=== PATIENT | female | born 1935 | race Caucasian/White ===

== ENCOUNTER 2017-03-14 12:39 | Inpatient (IN) | payer MEDICARE, BC ==
[~2017-03-14] VITALS: Ht 162.6 cm; Wt 65.3 kg
[2017-03-14] MEDS ORDERED: Norco 5mg/325mg tab ORAL PRN (16:15)
[2017-03-14] MEDS ORDERED: Lomotil 2.5mg tab ORAL PRN (16:15)
[2017-03-14] MEDS: Potassium Chloride 10 MEQ in NS 1000ml 1,000 ML IV SCH (17:52)
[2017-03-14 18:14] LABS: BASOPHILS % (AUTO) 0.8 % (0.0-2.0); EOSINOPHILS % (AUTO) 0.1 % (0.0-3.0); LYMPHOCYTES % (AUTO) 20.4 % (20.0-45.0); MEAN CORPUSCULAR HEMOGLOBIN 30.4 PG (27.0-31.0); MEAN CORPUSCULAR HGB CONC 33.9 G/DL (32.0-36.0); MEAN CORPUSCULAR VOLUME 90 FL (80-99); MEAN PLATELET VOLUME 12.3 FL (6.5-10.1); MONOCYTES % (AUTO) 9.4 % (1.0-10.0); NEUTROPHILS % (AUTO) 69.3 % (45.0-75.0); PLATELET COUNT 134 K/UL (150-450); RED BLOOD COUNT 4.91 M/UL (4.20-5.40); RED CELL DISTRIBUTION WIDTH 14.5 % (11.6-14.8); WHITE BLOOD COUNT 17.3 K/UL (4.8-10.8)
[2017-03-14 18:15] LABS: ALANINE AMINOTRANSFERASE 23 U/L (3-33); ALBUMIN/GLOBULIN RATIO 1.1 (1.0-2.7); ANION GAP 18 (5-15); ASPARTATE AMINO TRANSFERASE 42 U/L (5-40); CALCIUM 9.7 mg/dL (8.6-10.2); CARBON DIOXIDE 16 mEQ/L (20-30); CHLORIDE 108 mEQ/L (98-107); CREATININE 2.2 mg/dL (0.5-0.9); HEMOLYSIS 16; MAGNESIUM 2.7 mg/dL (1.7-2.5); POTASSIUM 4.1 mEQ/L (3.4-4.9); SODIUM 142 mEQ/L (135-145); TOTAL PROTEIN 7.9 g/dL (6.6-8.7)
[2017-03-14 20:00] VITALS: BP 98/60
[2017-03-14] MEDS: metroNIDAZOLE 500mg 100 ML IVPB SCH (22:56)
[2017-03-15] MEDS: Potassium Chloride 10 MEQ in NS 1000ml 1,000 ML IV SCH ×3 (03:04→17:09)
[2017-03-15 04:00] VITALS: BP 111/70
[2017-03-15] MEDS: metroNIDAZOLE 500mg 100 ML IVPB SCH ×3 (06:23→22:00)
[2017-03-15 06:31] LABS: APPEARANCE,URINE CLEAR; KETONES,URINE NEGATIVE (NEGATIVE); LEUKOCYTE ESTERASE ,URINE NEGATIVE (NEGATIVE); NITRITE,URINE NEGATIVE (NEGATIVE); PH,URINE 5 (4.5-8.0); PROTEIN,URINE NEGATIVE (NEGATIVE); UROBILINOGEN,URINE NORMAL MG/DL (0.0-1.0)
[2017-03-15 07:19] LABS: BASOPHILS % (AUTO) 0.7 % (0.0-2.0); EOSINOPHILS % (AUTO) 0.9 % (0.0-3.0); LYMPHOCYTES % (AUTO) 25.2 % (20.0-45.0); MEAN CORPUSCULAR HGB CONC 32.1 G/DL (32.0-36.0); MEAN CORPUSCULAR VOLUME 91 FL (80-99); MEAN PLATELET VOLUME 11.7 FL (6.5-10.1); NEUTROPHILS % (AUTO) 64.2 % (45.0-75.0); PLATELET COUNT 134 K/UL (150-450); RED BLOOD COUNT 4.53 M/UL (4.20-5.40); RED CELL DISTRIBUTION WIDTH 14.8 % (11.6-14.8); WHITE BLOOD COUNT 10.3 K/UL (4.8-10.8)
[2017-03-15 07:25] LABS: ALANINE AMINOTRANSFERASE 29 U/L (3-33); ALBUMIN/GLOBULIN RATIO 1.3 (1.0-2.7); ANION GAP 10 (5-15); ASPARTATE AMINO TRANSFERASE 41 U/L (5-40); CALCIUM 9.4 mg/dL (8.6-10.2); CARBON DIOXIDE 25 mEQ/L (20-30); CHLORIDE 105 mEQ/L (98-107); HEMOLYSIS 8; POTASSIUM 4.6 mEQ/L (3.4-4.9); SODIUM 140 mEQ/L (135-145)
[2017-03-15 09:00] VITALS: BP 105/62
--- NOTE | 2017-03-15 11:08 | Diagnostic Imaging Report ---
Indication: COUGH Technique: Two views of the chest Comparison: 05/13/2014 Findings: Inspiration is suboptimal. Atelectasis is demonstrated the left lung base. Lungs and pleural spaces otherwise clear. The aorta is tortuous. There is mild thoracic scoliotic deformity. No significant change Impression: Hypoventilatory exam. No acute process
[2017-03-15 15:43] VITALS: BP 116/74
[2017-03-15 20:11] VITALS: BP 111/44
--- NOTE | 2017-03-15 21:40 | Consultation ---
DATE OF CONSULTATION: 03/14/2017 REQUESTING PHYSICIAN: Urbano Dong M.D. REASON FOR CONSULTATION: Hypotension and hypovolemic shock. HISTORY OF PRESENT ILLNESS: This is a 81-year-old white female. She lives at home with her significant other. Over the past week, she has been increasingly withdrawn, bedridden, weak in her legs and had been unable to mobilize enough to even get to the bathroom. She has had incontinence of urine and stool, which has been watery and foul smelling. She has not been eating much nor taking her medications regularly. She was brought to the office today for evaluation and based on her severe hypotension of 80 systolic, admitted to the hospital. PAST MEDICAL HISTORY: 1. Head and neck cancer, status post right jaw removal with surgical replacement using bone from the right leg. 2. Hypothyroidism. 3. Pernicious anemia with B12 deficiency. 4. Iron deficiency. 5. Chronic obstructive pulmonary disease. ALLERGIES: None. FAMILY HISTORY: Notable for coronary artery disease in her sister. SOCIAL HISTORY: Active smoker 50+ pack years. No alcohol or substance abuse. REVIEW OF SYSTEMS: She does have a distant history of C. difficile colitis and fungal cyst and Jaida esophagitis. There is no history of active wheezing. She has not been on steroids recently. There is no history of cardiovascular disease. There is no history of seizure or stroke. She has had progressive memory loss. Decline in function since her head and neck surgery several years ago, however, follow up scans of the brain last year revealed no signs of recurrent disease or strokes. She is on thyroid replacement. There is no history of diabetes. There is no history of melena or bright red blood per rectum. She has been incontinent of urine. PHYSICAL EXAMINATION: GENERAL: Awake and alert, but withdrawn. VITAL SIGNS: Blood pressure 98/60, pulse 88, respirations 16, afebrile, and room air oxygen 96%. HEENT: Normocephalic and atraumatic. Conjunctivae pink. Oropharynx clear. There is a deep ulcer below the chin, which is chronic and unchanged from her previous surgery. NECK: Supple. No thyromegaly. LUNGS: With coarse breath sounds. Few rhonchi. CARDIAC: Regular rhythm and rate. Normal S1 and S2 with no murmur. ABDOMEN: Soft and nontender. No guarding or rebound. EXTREMITIES: Good pulses. No edema. NEUROLOGIC: Speech is slightly pressured with word-finding difficulty, but coherent. No focal motor deficits noted. LABORATORY DATA: Urine is pending. White count 17.3 and hemoglobin 14.9. Sodium 142, potassium 4.1, bicarbonate 16, BUN 67, and creatinine 2.2. TSH is 11.1. Albumin is 4.2. IMPRESSION: 1. Hypovolemic shock. 2. Dehydration. 3. Acute renal failure due to acute tubular necrosis. 4. Metabolic acidosis. 5. Leukocytosis. 6. Probable sepsis. 7. Possible acute pulmonary infection. 8. Possible urinary tract infection. 9. Possible colitis with diarrhea. 10. Hypothyroidism likely due to noncompliance. PLAN: 1. Stool for C. difficile. 2. Urinalysis and culture. 3. Intravenous fluid. 4. Hydration. 5. Empiric antibiotics. 6. Increase thyroid replacement. 7. Check chest x-ray. 8. Further assessment of functional capacity will follow. Adan Rodríguez M.D. DR: EMILIANA JOB#: [id number] CC:
--- NOTE | 2017-03-15 21:40 | History and Physical Report ---
DATE OF ADMISSION: 03/14/2017 CHIEF COMPLAINT: Acute renal failure, dehydration, and failure to thrive. HISTORY OF PRESENT ILLNESS: This is a 81-year-old female. She has a history of diastolic congestive heart failure and hypothyroidism. She has a history of oral cancer, status post resection. She is admitted with complaints of generalized weakness and altered mentation for approximately a week duration. The patient currently has not been eating well, has been more confused. No reports of any fever or chills. No cough. She has had diarrhea and no bright red blood per rectum. It is unclear whether or not she has been taking her medications. There are no reports of any headaches. PAST MEDICAL HISTORY: As above. PAST SURGICAL HISTORY: Oral surgery. CURRENT MEDICATIONS: Reconciled and reviewed. ALLERGIES: None. SOCIAL HISTORY: The patient is a prior smoker. No alcohol. No drugs. FAMILY HISTORY: None. REVIEW OF SYSTEMS: General: No fever or chills. Positive malaise and weakness. HEENT: No headaches or visual changes. Cardiopulmonary: No chest pain or shortness of breath. Gastrointestinal: No nausea or vomiting. Genitourinary: No urgency or frequency. Musculoskeletal: No dependent swelling. Neurologic: No evidence of seizures. PHYSICAL EXAMINATION: VITAL SIGNS: Temperature 97, pulse 88, respirations 16, and blood pressure is 98/60. GENERAL: The patient is well-developed female, in no apparent distress. There is a skin ulceration and scab on the chin. NECK: Supple. There is no jugular venous distention. HEART: Regular rate and rhythm. LUNGS: Clear. ABDOMEN: Soft, nontender, and nondistended. EXTREMITIES: Without clubbing, cyanosis, or edema. NEUROLOGICAL: The patient is nonfocal. She is oriented x3. LABORATORY DATA: UA was clear. White count of 17,000, hemoglobin 14, and platelets of 134,000. Sodium 143, potassium 4.1, chloride 108, bicarb 16, BUN 67, and creatinine was 2. AST was 42. TSH was 11. ASSESSMENT: This is a pleasant female with complaints of altered mental status, failure to thrive, possible sepsis, and leukocytosis of unclear etiology. She has a history of diastolic congestive heart failure and hypothyroidism. PLAN: Intravenous hydration. Check renal ultrasound. Empiric antibiotic therapy for possible sepsis. Follow up cultures. Follow up chest x-ray. Cardiology consultation for management of the patient's hypotension. Urbano Dong M.D. DR: TOD JOB#: [id number] CC:
[2017-03-16 00:12] VITALS: BP 120/73
--- NOTE | 2017-03-16 01:02 | Wound Care Consultation ---
Wound Assessment Wound Assessment : Wound Present on Admission: Yes New Wound: No Status Change of Wound: No Wound Location Body Site: other - chin Wound Type: lesion-etiology unknown Ciarra Test: Does not Ciarra Wound Thickness: Full Thickness Percent of Wound Bed Yellow/Wh: 50 Percent of Wound Black/Brown: 50 Wound Drainage Description: Serosanguineous Wound Drainage Amount: Scant Wound Drainage Odor: None/Absent Tissue Surrounding Wound: Intact Wound General Appearance: Draining Wound Comment #1 Open wounds on chin etiology unknown. Pt with Hx of oral cancer. Recommendation -Open wounds on chin Cleanse with saline pat dry apply Adaptic cover with bordered gauze daily and PRN soiled/dislodged -Keep clean and dry -Optimize nutrition -Assess and f/u with MD for any changes SANDIE ARANA RN Mar 16, 2017 01:02
[2017-03-16] MEDS: Potassium Chloride 10 MEQ in NS 1000ml 1,000 ML IV SCH ×4 (01:12→17:18)
[2017-03-16 04:55] VITALS: BP 116/77
[2017-03-16] MEDS: metroNIDAZOLE 500mg 100 ML IVPB SCH ×2 (05:33→15:02)
[2017-03-16 07:47] VITALS: BP 118/69
[2017-03-16 10:30] LABS: BASOPHILS % (AUTO) 0.8 % (0.0-2.0); EOSINOPHILS % (AUTO) 1.6 % (0.0-3.0); LYMPHOCYTES % (AUTO) 20.5 % (20.0-45.0); MEAN CORPUSCULAR HEMOGLOBIN 28.4 PG (27.0-31.0); MEAN CORPUSCULAR VOLUME 89 FL (80-99); MEAN PLATELET VOLUME 10.8 FL (6.5-10.1); MONOCYTES % (AUTO) 8.4 % (1.0-10.0); NEUTROPHILS % (AUTO) 68.8 % (45.0-75.0); PLATELET COUNT 114 K/UL (150-450); RED BLOOD COUNT 4.58 M/UL (4.20-5.40); RED CELL DISTRIBUTION WIDTH 13.9 % (11.6-14.8); WHITE BLOOD COUNT 9.1 K/UL (4.8-10.8)
[2017-03-16 10:57] LABS: ALANINE AMINOTRANSFERASE 29 U/L (3-33); ALBUMIN/GLOBULIN RATIO 1.1 (1.0-2.7); ANION GAP 13 (5-15); ASPARTATE AMINO TRANSFERASE 31 U/L (5-40); CALCIUM 9.4 mg/dL (8.6-10.2); CARBON DIOXIDE 20 mEQ/L (20-30); CHLORIDE 103 mEQ/L (98-107); CREATININE 1.5 mg/dL (0.5-0.9); HEMOLYSIS 5; MAGNESIUM 2.1 mg/dL (1.7-2.5); POTASSIUM 4.2 mEQ/L (3.4-4.9); SODIUM 136 mEQ/L (135-145); TOTAL PROTEIN 6.9 g/dL (6.6-8.7)
[2017-03-16 12:00] VITALS: BP 116/68
--- NOTE | 2017-03-16 14:28 | General Progress Note ---
Assessment/Plan Problem List: (1) Sepsis ICD Codes: A41.9 - Sepsis, unspecified organism SNOMED: 64720156 (2) UTI (urinary tract infection) ICD Codes: N39.0 - Urinary tract infection, site not specified SNOMED: 91033794 (3) Colitis ICD Codes: K52.9 - Noninfective gastroenteritis and colitis, unspecified SNOMED: 30046395 (4) Acute renal failure ICD Codes: N17.9 - Acute kidney failure, unspecified SNOMED: 57468618 (5) Dehydration ICD Codes: E86.0 - Dehydration SNOMED: 18582743 (6) Syncope ICD Codes: R55 - Syncope and collapse SNOMED: 487588685 Status: stable Assessment/Plan cont fluuids abx monitor renal fxn renal harjinder Subjective ROS Limited/Unobtainable: No Constitutional: Reports: malaise, weakness HEENT: Reports: no symptoms Cardiovascular: Reports: no symptoms Respiratory: Reports: no symptoms Gastrointestinal/Abdominal: Reports: no symptoms Genitourinary: Reports: no symptoms Neurologic/Psychiatric: Reports: no symptoms Endocrine: Reports: no symptoms Hematologic/Lymphatic: Reports: no symptoms Allergies: Coded Allergies: NO KNOWN ALLERGIES (Verified Allergy, Unknown, 03/14/17) NO KNOWN DRUG ALLERGIES (Verified Allergy, Unknown, 03/14/17) All Systems: reviewed and negative except above Subjective less confused. renal fxn improving. no diarrhea. on iv abx. Objective Last 24 Hour Vital Signs Date Time Temp Pulse Resp B/P Pulse Ox O2 Delivery O2 Flow Rate FiO2 03/16/17 12:00 97.9 84 20 116/68 99 Room Air 03/16/17 07:47 98.0 82 19 118/69 97 Room Air 03/16/17 04:55 97.7 80 20 116/77 98 Room Air 03/16/17 00:12 96.8 90 20 120/73 97 Room Air 03/15/17 20:11 97.3 86 20 111/44 96 Room Air 03/15/17 15:43 97.3 84 20 116/74 97 Room Air Intake and Output 03/15/17 03/16/17 19:00 07:00 Intake Total 480 ml 850 ml Balance 480 ml 850 ml Intake Oral 480 ml 850 ml # Voids 7 Laboratory Tests 03/16/17 08:30: White Blood Count 9.1, Red Blood Count 4.58, Hemoglobin 13.0, Hematocrit 40.6, Mean Corpuscular Volume 89, Mean Corpuscular Hemoglobin 28.4, Mean Corpuscular Hemoglobin Concent 32.0, Red Cell Distribution Width 13.9, Platelet Count 114L, Mean Platelet Volume 10.8H, Neutrophils (%) (Auto) 68.8, Lymphocytes (%) (Auto) 20.5, Monocytes (%) (Auto) 8.4, Eosinophils (%) (Auto) 1.6, Basophils (%) (Auto ) 0.8, Sodium Level 136, Potassium Level 4.2, Chloride Level 103, Carbon Dioxide Level 20, Anion Gap 13, Blood Urea Nitrogen 47H, Creatinine 1.5H, Estimat Glomerular Filtration Rate , Glucose Level 101, Calcium Level 9.4, Magnesium Level 2.1, Total Bilirubin 0.4, Aspartate Amino Transf (AST/SGOT) 31, Alanine Aminotransferase (ALT/SGPT) 29, Alkaline Phosphatase 57, Total Protein 6.9, Albumin 3.7, Globulin 3.2, Albumin/Globulin Ratio 1.1 Height (Feet): 5 Height (Inches): 4.00 Weight (Pounds): 144 General Appearance: WD/WN, alert Neck: supple Cardiovascular: regular rhythm Respiratory/Chest: lungs clear, normal breath sounds, no respiratory distress Abdomen: normal bowel sounds, non tender, soft, no organomegaly, no mass Edema: no edema noted Arm (L), no edema noted Arm (R), no edema noted Leg (L), no edema noted Leg (R), no edema noted Pedal (L), no edema noted Pedal (R), no edema noted Generalized Neurologic: manager procurement II-XII grossly normal, no motor/sensory deficits, abnormal gait , alert, oriented x 3, responsive Skin: normal pigmentation IRVING ALVARENGA Mar 16, 2017 14:28
[2017-03-16 15:46] VITALS: BP 109/68
[2017-03-16 19:34] VITALS: BP 117/54
[2017-03-16] MEDS ORDERED: Levofloxacin 250mg/D5W 50ml IVPB SCH (21:00)
[2017-03-16] MEDS: metroNIDAZOLE 500mg tab ORAL SCH (22:57)
[2017-03-17] VITALS (7 sets, daily range): BP systolic 101–125; BP diastolic 61–82
[2017-03-17] MEDS: Lyrica 50mg cap ORAL SCH ×2 (00:05→20:59)
--- NOTE | 2017-03-17 06:00 | Progress Note ---
DATE: 03/15/2017 LATE ENTRY CARDIOLOGY PROGRESS NOTE: SUBJECTIVE: The patient is more alert, still confused at night. Appetite is fair. She feels weak standing up. OBJECTIVE: VITAL SIGNS: Blood pressure is 105/62, pulse 84, and respiratory rate 18. HEENT: Oropharynx is clear. No thrush. Mucous membranes are dry. Lesion under chin without any drainage NECK: Supple. LUNGS: Clear. CARDIAC: Regular. Normal S1 and S2. ABDOMEN: Soft. EXTREMITIES: No edema. LABORATORY DATA: White count is 10 and hemoglobin 13. Potassium is 4.6, BUN 67, and creatinine 2.0. Albumin is 4. IMPRESSION: 1. Leukocytosis, improved. 2. Sepsis due to gastroenteritis suspected. 3. Hypothyroidism. 4. Dehydration. 5. Acute renal failure. 6. Metabolic encephalopathy. 7. Toxic encephalopathy. 8. History of head and neck cancer. PLAN: Continue IV fluids. Antimicrobials. Thyroid replacement. Physical and occupational therapy. Adan Rodríguez M.D. DR: Keanu JOB#: [id number] CC:
[2017-03-17] MEDS: metroNIDAZOLE 500mg tab ORAL SCH ×3 (06:45→21:34)
--- NOTE | 2017-03-17 08:22 | Diagnostic Imaging Report ---
Indications: Abnormal renal function tests Technique: Transabdominal real-time grayscale and duplex Doppler imaging of the kidneys, retroperitoneum, and urinary bladder was performed Findings: Comparison: None Right kidney measures 9.9 cm in length. Normal contour, echotexture, cortical thickness. No stones, other focal lesions, hydronephrosis, or obvious perinephric abnormalities. Left kidney measures 9.3 cm in length. Normal contour, echotexture, cortical thickness. No stones, other focal lesions, hydronephrosis, or obvious perinephric abnormalities. The intrahepatic portion of inferior vena cava is patent and normal caliber. The urinary bladder is minimally distended without obvious abnormality. IMPRESSION: Negative bilateral renal/retroperitoneal ultrasound
[2017-03-17] MEDS: Lactobacillus-GG tablet ORAL SCH ×3 (09:14→18:03)
--- NOTE | 2017-03-17 14:41 | Diagnostic Imaging Report ---
Indication: BERTA Technique: spiral acquisitions obtained through the brain. Angled axial and coronal 5 x 5 mm slices were reconstructed. No IV contrast utilized. Radiation dose was minimized using automated exposure control Total dose length product 1904 mGycm. CTDIvol(s) 28 and 70 mGy. These values are inclusive of facial CT performed at same time Comparison: none FINDINGS: No acute hemorrhage or edema. No mass effect or midline shift. There is age-related enlargement of the ventricles and extra axial CSF spaces. There is periventricular deep white matter ischemic change. Normal avila-white differentiation. Visualized orbits are unremarkable. Visualized sinuses are unremarkable. Intact calvarium. IMPRESSION: Chronic and age-related changes. Negative for acute intracranial bleed or mass effect The CT scanner at [facility] is accredited by the [employer] and the scans are performed using protocols designed to limit radiation exposure to as low as reasonably achievable to attain images of sufficient resolution adequate for diagnostic evaluation
--- NOTE | 2017-03-17 15:54 | General Progress Note ---
Assessment/Plan Problem List: (1) Sepsis ICD Codes: A41.9 - Sepsis, unspecified organism SNOMED: 96042483 (2) UTI (urinary tract infection) ICD Codes: N39.0 - Urinary tract infection, site not specified SNOMED: 91289402 (3) Colitis ICD Codes: K52.9 - Noninfective gastroenteritis and colitis, unspecified SNOMED: 86574415 (4) Acute renal failure ICD Codes: N17.9 - Acute kidney failure, unspecified SNOMED: 47481268 (5) Dehydration ICD Codes: E86.0 - Dehydration SNOMED: 05104474 (6) Syncope ICD Codes: R55 - Syncope and collapse SNOMED: 320724547 Status: stable, progressing Assessment/Plan cont fluuids abx monitor renal fxn pt/ot dc planning tomorrow if stable Subjective ROS Limited/Unobtainable: No Constitutional: Reports: malaise, weakness HEENT: Reports: no symptoms Cardiovascular: Reports: no symptoms Respiratory: Reports: no symptoms Gastrointestinal/Abdominal: Reports: diarrhea Genitourinary: Reports: no symptoms Neurologic/Psychiatric: Reports: pre-existing deficit Endocrine: Reports: no symptoms Hematologic/Lymphatic: Reports: no symptoms Allergies: Coded Allergies: NO KNOWN ALLERGIES (Verified Allergy, Unknown, 03/14/17) NO KNOWN DRUG ALLERGIES (Verified Allergy, Unknown, 03/14/17) All Systems: reviewed and negative except above Subjective less confused. renal fxn improving. no diarrhea. on iv abx. feels like she is getting "better." no hydro on harjinder. head ct negative. Objective Last 24 Hour Vital Signs Date Time Temp Pulse Resp B/P Pulse Ox O2 Delivery O2 Flow Rate FiO2 03/17/17 13:43 96.9 68 18 116/74 98 Room Air 03/17/17 12:00 96.9 68 18 116/74 98 03/17/17 08:00 96.8 74 18 104/68 99 Room Air 03/17/17 04:00 97.2 69 20 119/62 97 Room Air 03/17/17 00:00 97.8 59 17 125/82 97 03/16/17 19:34 98.1 83 20 117/54 98 Room Air Intake and Output 03/16/17 03/17/17 19:00 07:00 Intake Total 650 ml 410 ml Output Total 600 ml Balance 50 ml 410 ml Intake Oral 650 ml 360 ml IV Total 50 ml Output Urine Total 600 ml # Voids 6 # Bowel Movements 1 Height (Feet): 5 Height (Inches): 4.00 Weight (Pounds): 144 Objective General Appearance: WD/WN, alert Neck: supple Cardiovascular: regular rhythm Respiratory/Chest: lungs clear, normal breath sounds, no respiratory distress Abdomen: normal bowel sounds, non tender, soft, no organomegaly, no mass Edema: no edema noted Arm (L), no edema noted Arm (R), no edema noted Leg (L), no edema noted Leg (R), no edema noted Pedal (L), no edema noted Pedal (R), no edema noted Generalized Neurologic: transfer professor II-XII grossly normal, no motor/sensory deficits, abnormal gait , alert, oriented x 3, responsive Skin: normal pigmentation IRVING ALVARENGA Mar 17, 2017 15:54
[2017-03-17] MEDS ORDERED: Potassium Chloride 10 MEQ in NS 1000ml 1,000 ML IV SCH (17:00)
[2017-03-18 01:00] VITALS: BP 114/63
--- NOTE | 2017-03-18 03:00 | Progress Note ---
DATE: 03/17/2017 CARDIOLOGY PROGRESS NOTE SUBJECTIVE: The patient is more alert and less confused. Appetite better. OBJECTIVE: VITAL SIGNS: Blood pressure 116/74, heart rate 68, and respiratory rate 18. No fevers. HEENT: Oropharynx clear. NECK: Supple. LUNGS: Clear. CARDIAC: Regular. Normal S1 and S2 with a fourth heart sound. ABDOMEN: Soft. EXTREMITIES: No edema. SKIN: With chin wound, dry and stable. DIAGNOSTIC STUDIES: Renal ultrasound is without any acute process. CT scan of the brain with no acute process. IMPRESSION: 1. Dehydration. 2. Hypovolemia. 3. Acute renal failure. 4. Sepsis. 5. Probable acute pulmonary infection. 6. Hypothyroidism. 7. History of head and neck cancer. PLAN: 1. Await CT scan of the facial bones. 2. Continue hydration with taper as oral intake improves and renal function normalizes. 3. Thyroid replacement. Adan Rodríguez M.D. DR: ION JOB#: [id number] CC:
[2017-03-18 04:00] VITALS: BP 129/77
[2017-03-18] MEDS: metroNIDAZOLE 500mg tab ORAL SCH ×3 (06:25→20:27)
[2017-03-18 08:00] VITALS: BP 116/69
--- NOTE | 2017-03-18 08:20 | General Progress Note ---
Assessment/Plan Problem List: (1) Sepsis ICD Codes: A41.9 - Sepsis, unspecified organism SNOMED: 84235399 (2) UTI (urinary tract infection) ICD Codes: N39.0 - Urinary tract infection, site not specified SNOMED: 08069953 (3) Colitis ICD Codes: K52.9 - Noninfective gastroenteritis and colitis, unspecified SNOMED: 63745338 (4) Acute renal failure ICD Codes: N17.9 - Acute kidney failure, unspecified SNOMED: 57535888 (5) Dehydration ICD Codes: E86.0 - Dehydration SNOMED: 52062789 (6) Syncope ICD Codes: R55 - Syncope and collapse SNOMED: 674418566 Status: stable, progressing Assessment/Plan cont fluuids abx monitor renal fxn pt/ot dc planning was facial CT results back/reviewed. Subjective ROS Limited/Unobtainable: No Constitutional: Reports: weakness HEENT: Reports: no symptoms Cardiovascular: Reports: no symptoms Respiratory: Reports: no symptoms Gastrointestinal/Abdominal: Reports: diarrhea Genitourinary: Reports: no symptoms Neurologic/Psychiatric: Reports: no symptoms Endocrine: Reports: no symptoms Hematologic/Lymphatic: Reports: no symptoms Allergies: Coded Allergies: NO KNOWN ALLERGIES (Verified Allergy, Unknown, 03/14/17) NO KNOWN DRUG ALLERGIES (Verified Allergy, Unknown, 03/14/17) All Systems: reviewed and negative except above Subjective no events. continues top improve. morning labs still pending. awaiting facial CT. less dizzy and weak. Objective Last 24 Hour Vital Signs Date Time Temp Pulse Resp B/P Pulse Ox O2 Delivery O2 Flow Rate FiO2 03/18/17 08:00 97.7 76 20 116/69 98 Room Air 03/18/17 04:00 97.7 73 18 129/77 98 Room Air 03/18/17 01:00 97.7 62 18 114/63 96 Room Air 03/17/17 20:04 98.1 84 18 115/73 96 Room Air 03/17/17 16:00 96.9 79 18 101/61 97 Room Air 03/17/17 13:43 96.9 68 18 116/74 98 Room Air 03/17/17 12:00 96.9 68 18 116/74 98 Intake and Output 03/17/17 03/18/17 19:00 07:00 Intake Total 1240 ml 1380 ml Output Total 900 ml 400 ml Balance 340 ml 980 ml Intake Oral 1240 ml 420 ml IV Total 960 ml Output Urine Total 900 ml 400 ml # Voids 5 # Bowel Movements 1 Height (Feet): 5 Height (Inches): 4.00 Weight (Pounds): 144 Objective General Appearance: WD/WN, alert Neck: supple Cardiovascular: regular rhythm Respiratory/Chest: lungs clear, normal breath sounds, no respiratory distress Abdomen: normal bowel sounds, non tender, soft, no organomegaly, no mass Edema: no edema noted Arm (L), no edema noted Arm (R), no edema noted Leg (L), no edema noted Leg (R), no edema noted Pedal (L), no edema noted Pedal (R), no edema noted Generalized Neurologic: edm operator II-XII grossly normal, no motor/sensory deficits, abnormal gait , alert, oriented x 3, responsive Skin: normal pigmentation IRVING ALVARENGA Mar 18, 2017 08:20
[2017-03-18] MEDS: Lactobacillus-GG tablet ORAL SCH ×3 (08:59→17:07)
[2017-03-18] MEDS: Potassium Chloride 10 MEQ in NS 1000ml 1,000 ML IV SCH ×2 (09:00→20:27)
[2017-03-18 11:26] LABS: ANION GAP 11 (5-15); CALCIUM 9.8 mg/dL (8.6-10.2); CARBON DIOXIDE 23 mEQ/L (20-30); CHLORIDE 102 mEQ/L (98-107); CREATININE 1.4 mg/dL (0.5-0.9); HEMOLYSIS 4; POTASSIUM 4.7 mEQ/L (3.4-4.9); SODIUM 136 mEQ/L (135-145)
[2017-03-18 12:00] VITALS: BP 126/83
--- NOTE | 2017-03-18 12:00 | Progress Note ---
CARDIOLOGY PROGRESS NOTE OBJECTIVE: GENERAL: The patient is more alert and less confused. VITAL SIGNS: Blood pressure 116/69, pulse 76, and respiratory 20. LUNG: Few rhonchi. CARDIAC: Regular. ABDOMEN: Soft. EXTREMITIES: No edema. LABORATORY DATA: CAT scan of the facial bones is pending. IMPRESSION: 1. Rehydrated resolving renal failure. 2. Hypothyroidism. 3. Acute bronchitis. 4. Head and neck cancer. 5. Delirium improving. 6. Resolving sepsis. PLAN: 1. Follow up imaging of the facial bones. 2. Taper off IV fluids. 3. Follow up laboratory studies. 4. Protein supplement. 5. Thyroid replacement. 6. Empiric antibiotics. Adan Rodríguez M.D. DR: ROYAL JOB#: [id number] CC:
[2017-03-18 16:00] VITALS: BP 121/79
[2017-03-18 20:00] VITALS: BP 132/69
[2017-03-18] MEDS: Lyrica 50mg cap ORAL SCH (20:28)
[2017-03-19] VITALS: BP 129/77
[2017-03-19 04:00] VITALS: BP 109/64
[2017-03-19] MEDS: metroNIDAZOLE 500mg tab ORAL SCH ×3 (05:22→21:08)
[2017-03-19 08:00] VITALS: BP 110/68
[2017-03-19] MEDS: Lactobacillus-GG tablet ORAL SCH ×3 (08:23→17:24)
[2017-03-19] MEDS: Potassium Chloride 10 MEQ in NS 1000ml 1,000 ML IV SCH ×2 (09:30→21:08)
[2017-03-19 12:00] VITALS: BP 109/69
--- NOTE | 2017-03-19 18:48 | General Progress Note ---
Assessment/Plan Problem List: (1) Sepsis ICD Codes: A41.9 - Sepsis, unspecified organism SNOMED: 65875089 (2) UTI (urinary tract infection) ICD Codes: N39.0 - Urinary tract infection, site not specified SNOMED: 39228281 (3) Colitis ICD Codes: K52.9 - Noninfective gastroenteritis and colitis, unspecified SNOMED: 68942128 (4) Acute renal failure ICD Codes: N17.9 - Acute kidney failure, unspecified SNOMED: 16371276 (5) Dehydration ICD Codes: E86.0 - Dehydration SNOMED: 06488020 (6) Syncope ICD Codes: R55 - Syncope and collapse SNOMED: 316791101 Status: stable, progressing Assessment/Plan cont fluuids abx monitor renal fxn pt/ot start aricept 5 daily Subjective ROS Limited/Unobtainable: Yes HEENT: Reports: no symptoms Cardiovascular: Reports: no symptoms Respiratory: Reports: no symptoms Gastrointestinal/Abdominal: Reports: poor appetite Genitourinary: Reports: no symptoms Neurologic/Psychiatric: Reports: pre-existing deficit Endocrine: Reports: no symptoms Hematologic/Lymphatic: Reports: no symptoms Allergies: Coded Allergies: NO KNOWN ALLERGIES (Verified Allergy, Unknown, 03/14/17) NO KNOWN DRUG ALLERGIES (Verified Allergy, Unknown, 03/14/17) All Systems: reviewed and negative except above Subjective no events. continues top improve. ct head/facial bones shows atropy. pt thinks she is at home. Objective Last 24 Hour Vital Signs Date Time Temp Pulse Resp B/P Pulse Ox O2 Delivery O2 Flow Rate FiO2 03/19/17 12:00 96.6 64 18 109/69 97 Room Air 03/19/17 11:29 96.6 03/19/17 08:00 97.8 76 20 110/68 97 Room Air 03/19/17 04:00 97.0 74 18 109/64 93 Room Air 03/19/17 00:00 98.2 78 18 129/77 97 Room Air 03/18/17 20:00 97.7 82 18 132/69 96 Room Air Intake and Output 03/18/17 03/19/17 19:00 07:00 Intake Total 1165 ml 1000 ml Balance 1165 ml 1000 ml Intake Oral 320 ml 120 ml IV Total 845 ml 880 ml # Voids 5 5 Height (Feet): 5 Height (Inches): 4.00 Weight (Pounds): 144 Objective General Appearance: WD/WN, alert Neck: supple Cardiovascular: regular rhythm Respiratory/Chest: lungs clear, normal breath sounds, no respiratory distress Abdomen: normal bowel sounds, non tender, soft, no organomegaly, no mass Edema: no edema noted Arm (L), no edema noted Arm (R), no edema noted Leg (L), no edema noted Leg (R), no edema noted Pedal (L), no edema noted Pedal (R), no edema noted Generalized Neurologic: pipe buffer II-XII grossly normal, no motor/sensory deficits, abnormal gait , alert, oriented x 3, responsive Skin: normal pigmentation IRVING ALVARENGA Mar 19, 2017 18:48
[2017-03-19 20:00] VITALS: BP 110/48
[2017-03-19] MEDS: Donepezil 5mg Tab ORAL SCH (21:08)
[2017-03-19] MEDS: Lyrica 50mg cap ORAL SCH (21:12)
[2017-03-20] VITALS: BP 105/54
[2017-03-20 04:00] VITALS: BP 111/60
--- NOTE | 2017-03-20 04:45 | Progress Note ---
DATE: 03/19/2017 CARDIOLOGY PROGRESS NOTE SUBJECTIVE: The patient is confused to place thinking she is at home. She is afebrile. Oral intake improved. OBJECTIVE: VITAL SIGNS: Blood pressure 109/60, pulse 80, and respiratory rate 20. LUNGS: Clear. CARDIAC: Regular. ABDOMEN: Soft. EXTREMITIES: No edema. Atrophy is noted only in the scan of the jaw. LABORATORY DATA: BUN 35, creatinine 1.4, and potassium 4.7, yesterday. IMPRESSION: 1. Acute renal failure improving. 2. Delirium. 3. Head and neck cancer in remission following surgery. 4. Hypothyroidism. PLAN: 1. Continue hydration. 2. Agree with Aricept. 3. Encourage oral intake and discontinue IVs once that is adequate. 4. Thyroid replacement daily on an empty stomach. 5. Mobilize and discharge planning in progress. Adan Rodríguez M.D. DR: EMILIANA JOB#: [id number] CC:
[2017-03-20] MEDS: metroNIDAZOLE 500mg tab ORAL SCH ×3 (06:39→21:38)
[2017-03-20] MEDS: Lactobacillus-GG tablet ORAL SCH ×3 (08:08→17:12)
[2017-03-20 08:09] VITALS: BP 123/68
--- NOTE | 2017-03-20 08:38 | Diagnostic Imaging Report ---
Indications: LUMP jaw pain, history of jaw surgery Technique: Spiral images obtained through the facial bones. No IV contrast utilized. Multiplanar reconstructions were generated.Total dose length product 1904 mGycm. CTDIvol(s) 28 and 70mGy. Values include head CT performed at same time Dose reduction achieved using automated exposure control Comparison: 09/12/2013 Findings: Again demonstrated is absent, presumably postsurgical, of a significant portion of the right mandibular body and ramus. Lateral side plate extends from the left side of the mentum, along the right mentum, body, angle, and up the right mandibular ramus. Although the sideplate is likely from the outer cortex of the mandible, the screw holes appear intact, without any worrisome lucency. Appearance and configuration are unchanged. There is a soft tissue defect of the facial soft tissues adjacent to the posterior mandibular body currently, this defect extends to the surgical hardware, which may very well be exposed. Previously, there was intervening soft tissue between the mandibular hardware and skin surface. However, there is not a significant amount of inflammatory change in the surrounding fat. This portion of the mandible is edentulous, as well. Considerable fat is seen surrounding the mandibular body. Uncertain as to whether this represents surgically induced fat or a secondary to atrophy of the adjacent musculature. There is absence of the right submandibular gland and atrophy of the right parotid gland. The remainder of the mandible is unremarkable. Surgical clips are seen surrounding the right side of the mandible, both deep and superficial to it. No definite mass lesion is demonstrated. No definite adenopathy. Streak artifact from dental amalgam could obscure pathology, however. The visualized orbits are unremarkable. The included intracranial structures are unremarkable except for cerebral volume loss. The mastoids are clear. There is sigmoid nasal septal deviation. No acute facial fracture is evident. 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 However, soft tissue defect adjacent to the mandibular body is considerably deeper than previously, now possibly sclerosis the surface of the hardware. This may be the result of intervening surgery, as there is not significant inflammation of the surrounding fat to suggest that this represents an ulceration. Correlation with clinical findings is recommended. No acute bony trauma. No other findings to suggest etiology of stated clinical history of jaw pain. The CT scanner at [facility] is accredited by the [employer] and the scans are performed using protocols designed to limit radiation exposure to as low as reasonably achievable to attain images of sufficient resolution adequate for diagnostic evaluation.
[2017-03-20 12:09] VITALS: BP 148/93
[2017-03-20] MEDS: Potassium Chloride 10 MEQ in NS 1000ml 1,000 ML IV SCH ×2 (13:57→22:50)
--- NOTE | 2017-03-20 14:16 | General Progress Note ---
Assessment/Plan Problem List: (1) Sepsis ICD Codes: A41.9 - Sepsis, unspecified organism SNOMED: 37363004 (2) UTI (urinary tract infection) ICD Codes: N39.0 - Urinary tract infection, site not specified SNOMED: 37741865 (3) Colitis ICD Codes: K52.9 - Noninfective gastroenteritis and colitis, unspecified SNOMED: 52805088 (4) Acute renal failure ICD Codes: N17.9 - Acute kidney failure, unspecified SNOMED: 09793358 (5) Dehydration ICD Codes: E86.0 - Dehydration SNOMED: 49674426 (6) Syncope ICD Codes: R55 - Syncope and collapse SNOMED: 507093890 Status: stable, progressing Assessment/Plan cont fluids abx monitor renal fxn pt/ot dc 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 Subjective ROS Limited/Unobtainable: No Constitutional: Reports: malaise, weakness HEENT: Reports: no symptoms Cardiovascular: Reports: no symptoms Respiratory: Reports: no symptoms Gastrointestinal/Abdominal: Reports: no symptoms Genitourinary: Reports: no symptoms Neurologic/Psychiatric: Reports: pre-existing deficit Endocrine: Reports: no symptoms Hematologic/Lymphatic: Reports: no symptoms Allergies: Coded Allergies: NO KNOWN ALLERGIES (Verified Allergy, Unknown, 03/14/17) NO KNOWN DRUG ALLERGIES (Verified Allergy, Unknown, 03/14/17) All Systems: reviewed and negative except above Subjective no events. oriented only to person. has sitter because she wanders. recognizes me. eating better. still thinks shes at "home." Objective Last 24 Hour Vital Signs Date Time Temp Pulse Resp B/P Pulse Ox O2 Delivery O2 Flow Rate FiO2 03/20/17 12:09 98.6 78 22 148/93 97 Room Air 03/20/17 08:09 97.0 81 21 123/68 96 Room Air 03/20/17 04:00 98.1 79 20 111/60 98 Room Air 03/20/17 00:00 98.1 81 20 105/54 97 Room Air 03/19/17 20:00 98.2 73 20 110/48 95 Room Air Intake and Output 03/19/17 03/20/17 19:00 07:00 Intake Total 1760 ml 960 ml Output Total 1100 ml Balance 1760 ml -140 ml Intake Oral 800 ml IV Total 960 ml 960 ml Output Urine Total 1100 ml # Voids 10 Height (Feet): 5 Height (Inches): 4.00 Weight (Pounds): 144 Objective General Appearance: WD/WN, alert Neck: supple Cardiovascular: regular rhythm Respiratory/Chest: lungs clear, normal breath sounds, no respiratory distress Abdomen: normal bowel sounds, non tender, soft, no organomegaly, no mass Edema: no edema noted Arm (L), no edema noted Arm (R), no edema noted Leg (L), no edema noted Leg (R), no edema noted Pedal (L), no edema noted Pedal (R), no edema noted Generalized Neurologic: senior linux systems administrator II-XII grossly normal, no motor/sensory deficits, abnormal gait , alert, oriented x 3, responsive Skin: normal pigmentation IRVING ALVARENGA Mar 20, 2017 14:16
[2017-03-20 16:02] VITALS: BP 132/83
[2017-03-20 19:29] VITALS: BP 120/73
[2017-03-20] MEDS: Donepezil 5mg Tab ORAL SCH (20:33)
[2017-03-20] MEDS: Lyrica 50mg cap ORAL SCH (20:33)
[2017-03-21] VITALS: BP 129/71
[2017-03-21 04:00] VITALS: BP 126/70
[2017-03-21] MEDS: metroNIDAZOLE 500mg tab ORAL SCH (06:10)
[2017-03-21 07:54] LABS: ALANINE AMINOTRANSFERASE 15 U/L (3-33); ALBUMIN/GLOBULIN RATIO 1.2 (1.0-2.7); ANION GAP 11 (5-15); ASPARTATE AMINO TRANSFERASE 16 U/L (5-40); CALCIUM 9.2 mg/dL (8.6-10.2); CARBON DIOXIDE 23 mEQ/L (20-30); CHLORIDE 107 mEQ/L (98-107); CREATININE 1.4 mg/dL (0.5-0.9); HEMOLYSIS 5; POTASSIUM 4.2 mEQ/L (3.4-4.9); SODIUM 141 mEQ/L (135-145); TOTAL PROTEIN 6.2 g/dL (6.6-8.7)
[2017-03-21 08:15] VITALS: BP 123/65
[2017-03-21] MEDS: Lactobacillus-GG tablet ORAL SCH (08:36)
[2017-03-21] MEDS ORDERED: LYRICA50 MG ORAL (09:10)
[2017-03-21] MEDS ORDERED: LEVOTHYROXINE150 MCG ORAL (09:10)
[2017-03-21] MEDS: Potassium Chloride 10 MEQ in NS 1000ml 1,000 ML IV SCH (11:24)
--- NOTE | 2017-03-22 02:00 | Progress Note ---
DATE: 03/20/2017 CARDIOLOGY PROGRESS NOTE: SUBJECTIVE: The patient remains confused, but directable. No nausea or vomiting. Tolerating diet. Imaging studies of the brain and facial bones revealed no acute pathology. OBJECTIVE: VITAL SIGNS: Afebrile, blood pressure is 123/60, pulse 81, and respiratory rate 21. LUNGS: Clear. CARDIAC: Regular. ABDOMEN: Soft. EXTREMITIES: No edema. IMPRESSION: 1. Acute renal failure, improved. 2. Dehydration and hypovolemia, recovering. 3. Hypothyroidism due to noncompliance. 4. Head and neck cancer in remission. 5. 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 PLAN: 1. Continue hydration. 2. Mobilize thyroid replacement. 3. Encourage oral intake. 4. Anticipate discontinued intravenous fluids over the next 24 hours if renal function continued to improve with no signs of pulmonary venous congestion. Adan Rodríguez M.D. DR: Keanu JOB#: [id number] CC:
--- NOTE | 2017-03-22 02:30 | Progress Note ---
DATE: 03/21/2017 CARDIOLOGY PROGRESS NOTE SUBJECTIVE: The patient's intake is good. Laboratories today revealed BUN 21 and creatinine 1.4. Albumin 3.4. The patient without abdominal pain, nausea, or vomiting. Discharge plan is initiated. OBJECTIVE: VITAL SIGNS: Blood pressure 126/70, pulse 78, respirations 18, no fevers. NECK: Supple. LUNGS: Clear. CARDIAC: Regular. ABDOMEN: Soft. EXTREMITIES: No edema. LABORATORY DATA: BUN 21, creatinine 1.4. IMPRESSION: 1. Improved and resolving renal failure due to acute tubular necrosis. 2. Dehydration and hypovolemia. 3. Hypothyroidism, needs additional replacement therapy on an empty stomach. 4. History of head and neck cancer, in remission with anoxic encephalopathy. 5. Mild protein-calorie malnutrition. PLAN: Plan of care reviewed and updated. Discharge medications discussed with family members. We will follow as an outpatient when needed. Adan Rodríguez M.D. DR: PATTI JOB#: [id number] CC:
--- NOTE | 2017-03-23 17:46 | Discharge Summary ---
Discharge Summary Hospital Course Date of Admission Mar 14, 2017 at 13:16 Date of Discharge Mar 21, 2017 at 12:07 Admitting Diagnosis HPI Debbie Byrd is a 81 year old female who was admitted on Mar 14, 2017 at 13:16 for Dehydration,Syncope Hospital Course [id number] Discharge Discharge Disposition Patient was discharged to Home with Home Health(06) Discharge Diagnoses: Keturah Rizvi NP Mar 23, 2017 17:46
--- NOTE | 2017-03-23 22:15 | Discharge Summary 2 SIG ---
DATE OF ADMISSION: 03/14/2017 DATE OF DISCHARGE: 03/21/2017 SOCIAL MEDIA DIRECTOR: Adan Rodríguez M.D. BRIEF HOSPITAL COURSE: The patient is a 81-year-old female with history of diastolic congestive heart failure and hypothyroidism. She was seen at Cardiology office and was noted to be hypotensive at 80 systolic and was advised to present to ED for further evaluation. She has history of oral cancer status post resection. She was admitted for complaints of generalized weakness with altered mentation for approximately one week duration and has not been eating well and has been more confused. There was diarrhea, but no bright red blood per rectum. She was admitted to medical floor for altered mental status, failure to thrive, possible sepsis, and leukocytosis of unclear etiology. She had a history of diastolic congestive heart failure and hypothyroidism and was given IV hydration and was started on empiric antibiotics. WBC was 17,000 and TSH was 11. She was followed by Dr. Rodríguez. She had renal failure secondary to hypovolemic shock, and dehydration. Creatinine was 2.2. Renal ultrasound done was negative for bilateral renal or retroperitoneal abnormality. Head CT showed chronic age-related changes, negative for acute intracranial bleed or mass effect. Chest x-ray showed no acute process. She underwent physical and occupational therapy. She had CT of the facial bones that showed postsurgical changes in the right mandible and right perimandibular soft tissue. There was no acute bony trauma. No other findings to suggest jaw pain. She was given thyroid supplements and was eventually started on Aricept. Renal function improved. She was eventually discharged home with and advised to follow up as outpatient. FINAL DIAGNOSES: 1. Acute renal failure due to acute tubular necrosis, improved and resolving. 2. Dehydration. 3. Hypovolemia. 4. Hypothyroidism. 5. Head and neck cancer in remission. 6. Mild protein-calorie malnutrition. 7. Dementia. 8. Sepsis. 9. Urinary tract infection. 10. Colitis. 11. Open wounds on the chin present on admission. Urbano Dong M.D. I have been assigned to dictate discharge summary on this account and I was not involved in the patient's management. Keturah Rizvi N.P. DR: Leyda JOB#: [id number] CC: DAVID
== END 2017-03-21 12:07 | disposition home health service (06) | DRG 871 ==
LOC: 4E 13:16
DX: A41.9 Sepsis, unspecified organism (principal); R57.1 Hypovolemic shock; N17.0 Acute kidney failure with tubular necrosis; G93.41 Metabolic encephalopathy; G92 Toxic encephalopathy; J18.9 Pneumonia, unspecified organism; I50.32 Chronic diastolic (congestive) heart failure; F03.90 Unspecified dementia, unspecified severity, without behavioral disturbance, psychotic disturbance, mood disturbance, and anxiety; N39.0 Urinary tract infection, site not specified; E44.1 Mild protein-calorie malnutrition; E86.0 Dehydration; K52.9 Noninfective gastroenteritis and colitis, unspecified; E03.9 Hypothyroidism, unspecified; Z87.891 Personal history of nicotine dependence; J44.9 Chronic obstructive pulmonary disease, unspecified; Z85.89 Personal history of malignant neoplasm of other organs and systems; R55 Syncope and collapse; J20.9 Acute bronchitis, unspecified; R41.0 Disorientation, unspecified; S01.80XA Unspecified open wound of other part of head, initial encounter; X58.XXXA Exposure to other specified factors, initial encounter
CPT/HCPCS: 36415; 70450; 70486; 71020; 76775; 80048; 80053; 81003; 83735; 84443; 85025

== ENCOUNTER 2017-05-07 13:37 | Inpatient (IN) | payer MEDICARE, BC ==
[~2017-05-07] VITALS: Ht 162.6 cm; Wt 59.0 kg
[~2017-05-07 13:37] MED LIST: LEVOTHYROXINE150 MCG ORAL; LYRICA50 MG ORAL
[2017-05-07] MEDS ORDERED: UNOBMED (13:42)
--- NOTE | 2017-05-07 13:58 | Emergency Room Report ---
History of Present Illness General Chief Complaint: General Complaint Source: Patient, EMS, PMD Present Illness HPI 81-year-old female history of diastolic CHF, hypothyroidism, dementia brought by EMS for altered mental status. Patient is currently alert and oriented to only person and place, however very confused and not able to give full history. PCP Dr Rodríguez called and stated that patient lives at home with her . Both her and her are both debilitated. Pt found by altered and in her feces. No other history able to be obtained. Dr. Rodríguez called 911 and brought patient to the hospital. Patient is currently denying any symptoms. Denying any known fever chills abdominal pain chest pain shortness of breath cough nausea or vomiting. Patient does not know why she is here Allergies: Coded Allergies: NO KNOWN ALLERGIES (Verified Allergy, Unknown, 03/14/17) NO KNOWN DRUG ALLERGIES (Verified Allergy, Unknown, 03/14/17) UNABLE TO ASSESS (Unverified , 05/07/17) Patient History Limited by: medical condition Past Medical History: see triage record Past Surgical History: none Pertinent Family History: none Reviewed Nursing Documentation: PMH: Agreed, PSxH: Agreed Nursing Documentation-PMH History Of Psychiatric Problem: Yes - Dementia Review of Systems All Other Systems: limited - pt with dementia not able to give full hx Physical Exam Vital Signs Date Time Temp Pulse Resp B/P (MAP) Pulse Ox O2 Delivery O2 Flow Rate FiO2 05/07/17 13:33 99.5 93 18 125/88 98 Room Air Sp02 EP Interpretation: reviewed, normal General Appearance: alert, other - Elderly female, appears dehydrated, appears nervous, confused Head: normocephalic, atraumatic Eyes: bilateral eye normal inspection, bilateral eye PERRL, bilateral eye EOMI ENT: normal ENT inspection, normal pharynx, normal voice, dry mucus membranes Neck: normal inspection, full range of motion, supple Respiratory: normal inspection, lungs clear, normal breath sounds, no respiratory distress, no retraction, no wheezing, chest symmetrical Cardiovascular #1: normal inspection, no edema, normal capillary refill, tachycardia Cardiovascular #2: 2+ radial (R), 2+ radial (L) Gastrointestinal: normal inspection, non tender, soft, non-distended, no guarding Musculoskeletal: normal inspection, back normal, normal range of motion, non- tender Neurologic: alert, responsive, motor strength/tone normal, sensory intact, normal gait, other - aox2, confused Psychiatric: anxious, other - confused Skin: normal color, no rash, warm/dry, normal turgor Procedures Critical Care Time Critical Care Time 40 minutes of CC time 81 yo F with altered mental status VS: tachycardia, febrile Sepsis criteria met Airway patent. Not hypoxic. PLAN: IV access, labs, lactate, Blood/Urine Cx, Abx Given IVF, [place] tylenol, abx Tele vs LISA CC time also includes review of labs, review of EMR, speaking to PMD, d/w hospitalist CC could include dosing of pressors, additional Abx CC time does not include procedures Medical Decision Making Diagnostic Impression: Primary Impression: Acute renal failure Qualified Codes: N17.9 - Acute kidney failure, unspecified Additional Impressions: Dehydration Sepsis Hypernatremia Altered mental status UTI (urinary tract infection) ER Course 81 yo F with altered mental status, dehydration DDX: Rule out infectious source, UTI, pneumonia, gastroenteritis. At this time patient's abdomen is soft nontender to deep palpation, not concerned of acute intra-abdominal surgical pathology. Dehydration, hypovolemia, renal failure, electrolyte disturbance, ACS Plan: Obtain labs, ua, blood cx, EKG, CXR ER course: Patient has been monitored during ED stay, HD stable tylenol given sepsis criteria met ceftriaxone given for UTI fluids given 30cc/kg Disposition: Patient is to be admitted to med surg. D/W hospitalist Dr. Rodríguez Please note that this Emergency Department Report was dictated using [employer] helper technology software, occasionally this can lead to erroneous entry secondary to interpretation by the dictation equipment. Laboratory Tests Test 05/07/17 14:10 05/07/17 15:20 White Blood Count 11.9 K/UL (4.8-10.8) H Red Blood Count 5.92 M/UL (4.20-5.40) H Hemoglobin 16.9 G/DL (12.0-16.0) H Hematocrit 52.7 % (37.0-47.0) H Mean Corpuscular Volume 89 FL (80-99) Mean Corpuscular Hemoglobin 28.6 PG (27.0-31.0) Mean Corpuscular Hemoglobin Concent 32.1 G/DL (32.0-36.0) Red Cell Distribution Width 15.3 % (11.6-14.8) H Platelet Count 194 K/UL (150-450) Mean Platelet Volume 10.5 FL (6.5-10.1) H Neutrophils (%) (Auto) 75.3 % (45.0-75.0) H Lymphocytes (%) (Auto) 16.8 % (20.0-45.0) L Monocytes (%) (Auto) 7.2 % (1.0-10.0) Eosinophils (%) (Auto) 0.0 % (0.0-3.0) Basophils (%) (Auto) 0.7 % (0.0-2.0) Sodium Level 150 mEQ/L (135-145) H Potassium Level 4.5 mEQ/L (3.4-4.9) Chloride Level 109 mEQ/L (98-107) H Carbon Dioxide Level 24 mEQ/L (20-30) Anion Gap 17 (5-15) H Blood Urea Nitrogen 45 mg/dL (7-23) H Creatinine 2.3 mg/dL (0.5-0.9) H Estimate Glomerular Filtration Rate mL/min (>60) Glucose Level 131 mg/dL (74-106) H Lactic Acid Level 2.70 mmol/L (0.66-2.22) H Calcium Level 11.2 mg/dL (8.6-10.2) H Total Bilirubin 0.7 mg/dL (0.0-1.2) Aspartate Amino Transferase (AST) 16 U/L (5-40) Alanine Aminotransferase (ALT) 11 U/L (3-33) Alkaline Phosphatase 61 U/L (35-104) Total Creatine Kinase 20 U/L (26-140) L Creatine Kinase MB < 1.5 ng/mL (< 3.8) Creatine Kinase MB Relative Index 7.5 Troponin I < 0.30 ng/mL (<=0.30) Total Protein 8.5 g/dL (6.6-8.7) Albumin 4.8 g/dL (3.5-5.2) Globulin 3.7 g/dL Albumin/Globulin Ratio 1.2 (1.0-2.7) Thyroid Stimulating Hormone (TSH) 7.190 uIU/mL (0.300-4.500) Urine Color Stephany Urine Appearance Slightly cloudy Urine pH 6 (4.5-8.0) Urine Specific Lindsay 1.015 (1.005-1.035) Urine Protein 2+ (NEGATIVE) H Urine Glucose (UA) Negative (NEGATIVE) Urine Ketones Negative (NEGATIVE) Urine Occult Blood 1+ (NEGATIVE) H Urine Nitrite Negative (NEGATIVE) Urine Bilirubin Negative (NEGATIVE) Urine Ictotest Negative Urine Urobilinogen 1 MG/DL (0.0-1.0) H Urine Leukocyte Esterase 1+ (NEGATIVE) H Urine RBC 2-4 /HPF (0 - 2) H Urine WBC 5-10 /HPF (0 - 2) H Urine Squamous Epithelial Cells Moderate /LPF (NONE/OCC) H Urine Bacteria Moderate /HPF (NONE) H Urine Mucus Moderate /LPF (NONE/OCC) H EKG Diagnostic Results Rate: tachycardiac Rhythm: NSR ST Segments: no acute changes ASA given to the pt in ED: No Rhythm Strip Diag. Results EP Interpretation: yes Rate: 100 Rhythm: NSR, no PVC's, no ectopy Chest X-Ray Diagnostic Results Chest X-Ray Diagnostic Results : Chest X-Ray Ordered: Yes # of Views/Limited/Complete: 1 View Indication: Other EP Interpretation: Yes Interpretation: no consolidation, no effusion, no pneumothorax, no acute cardiopulmonary disease Impression: No acute disease Interpreting ER Provider: Electronically signed by Jayson Trevino MD Last Vital Signs Date Time Temp Pulse Resp B/P (MAP) Pulse Ox O2 Delivery O2 Flow Rate FiO2 05/07/17 13:33 99.5 93 18 125/88 98 Room Air Disposition: ADMITTED INPATIENT Condition: Serious Jayson Trevino M.D. May 07, 2017 13:58
[2017-05-07 14:43] LABS: BASOPHILS % (AUTO) 0.7 % (0.0-2.0); LYMPHOCYTES % (AUTO) 16.8 % (20.0-45.0); MEAN CORPUSCULAR HEMOGLOBIN 28.6 PG (27.0-31.0); MEAN CORPUSCULAR HGB CONC 32.1 G/DL (32.0-36.0); MEAN CORPUSCULAR VOLUME 89 FL (80-99); MEAN PLATELET VOLUME 10.5 FL (6.5-10.1); MONOCYTES % (AUTO) 7.2 % (1.0-10.0); NEUTROPHILS % (AUTO) 75.3 % (45.0-75.0); PLATELET COUNT 194 K/UL (150-450); RED BLOOD COUNT 5.92 M/UL (4.20-5.40); RED CELL DISTRIBUTION WIDTH 15.3 % (11.6-14.8); WHITE BLOOD COUNT 11.9 K/UL (4.8-10.8)
[2017-05-07 14:59] LABS: ALANINE AMINOTRANSFERASE 11 U/L (3-33); ALBUMIN/GLOBULIN RATIO 1.2 (1.0-2.7); ANION GAP 17 (5-15); ASPARTATE AMINO TRANSFERASE 16 U/L (5-40); CALCIUM 11.2 mg/dL (8.6-10.2); CARBON DIOXIDE 24 mEQ/L (20-30); CHLORIDE 109 mEQ/L (98-107); CREATININE 2.3 mg/dL (0.5-0.9); HEMOLYSIS 2; POTASSIUM 4.5 mEQ/L (3.4-4.9); SODIUM 150 mEQ/L (135-145); TOTAL PROTEIN 8.5 g/dL (6.6-8.7); TROPONIN I < 0.30 ng/mL (<=0.30)
[2017-05-07 15:02] LABS: REFLEX LACTIC ACID YES OR NO YES
[2017-05-07 15:09] LABS: CKMB < 1.5 ng/mL (< 3.8)
[2017-05-07 15:14] VITALS: BP 128/67
[2017-05-07 15:31] LABS: APPEARANCE,URINE SLIGHTLY CLOUDY; KETONES,URINE NEGATIVE (NEGATIVE); LEUKOCYTE ESTERASE ,URINE 1+ (NEGATIVE); NITRITE,URINE NEGATIVE (NEGATIVE); PH,URINE 6 (4.5-8.0); PROTEIN,URINE 2+ (NEGATIVE); UROBILINOGEN,URINE 1 MG/DL (0.0-1.0)
[2017-05-07 15:40] LABS: BACTERIA,URINE MODERATE /HPF; ICTOTEST NEGATIVE; MUCUS,URINE MODERATE /LPF (NONE/OCC); SQUAMOUS EPITHELIAL CELL,UR MODERATE /LPF (NONE/OCC)
[2017-05-07] MEDS ORDERED: cefTRIAXone 1 GM in NS 55 ML IVPB ONE (16:00)
[2017-05-07 17:34] VITALS: BP 132/86
[2017-05-07 19:04] VITALS: BP 132/86
[2017-05-07 20:45] VITALS: BP 120/75
[2017-05-07 20:58] VITALS: BP 133/75
[2017-05-07] MEDS: Lyrica 50mg cap ORAL SCH (22:39)
[2017-05-07] MEDS: D5 1/2NS 1,000 ML IV SCH (22:40)
[2017-05-07] MEDS: Heparin 5000 units/ml inj SUBQ SCH (22:43)
[2017-05-08] VITALS: BP 137/79
[2017-05-08 04:00] VITALS: BP 104/55
[2017-05-08 08:00] VITALS: BP 107/58
[2017-05-08] MEDS: D5 1/2NS 1,000 ML IV SCH ×2 (09:08→18:02)
[2017-05-08] MEDS: Heparin 5000 units/ml inj SUBQ SCH ×2 (09:18→21:01)
--- NOTE | 2017-05-08 09:34 | Diagnostic Imaging Report ---
Indication: Chest pain Technique: One view of the chest Comparison: 03/15/2017 Findings: Lungs and pleural space are clear. Heart size is normal. Aorta is tortuous. Upper mediastinum is unremarkable. Better inspiration currently. There is no significant interim change otherwise Impression: No acute process This agrees with the preliminary interpretation provided by the emergency room physician
[2017-05-08 12:06] VITALS: BP 101/64
[2017-05-08 15:50] VITALS: BP 100/85
[2017-05-08] MEDS ORDERED: D5 1/2NS 1000ml IV ONE (16:13)
[2017-05-08] MEDS: cefTRIAXone 1 GM in D5W 55 ML IVPB SCH (16:57)
--- NOTE | 2017-05-08 19:48 | History & Physical ---
History and Physical History & Physicial CC: AMS HPI: 81 yo female history htn, hypothyroid, dementia, head and neck ca admitted with ams. dxd with arf, dehydration, sepsis, uti. on iv abx and ivf admitted for rx. PMH: as above PSH: head and neck ca Meds: recon and reviewed All: NKDA FH: cad, dementia, htn Shx: history of tob. no etoh or drugs ROS: not obtainable due to confusion PE: VSS nad small scab right chin supple. no lad [id number] clear soft, nt/nd, +bs no c/c/e Labs - cr 2 UA- +wbc A/ toxic met encephalopathy arf hypernatremia uti sepsis htn hypothyroid P/ ivf iv abx monitor rrenal fxn follow up cultures pt/ot IRVING ALVARENGA May 08, 2017 19:48
[2017-05-08 20:00] VITALS: BP 119/66
[2017-05-08] MEDS: Lyrica 50mg cap ORAL SCH (21:00)
[2017-05-09] VITALS (7 sets, daily range): BP systolic 93–135; BP diastolic 57–83
--- NOTE | 2017-05-09 05:15 | Progress Note ---
DATE: 05/08/2017 CARDIOLOGY PROGRESS NOTE SUBJECTIVE: The patient remains withdrawn and lethargic. She has no nausea or vomiting. Her oral intake is minimal. OBJECTIVE: VITAL SIGNS: Blood pressure 100/85, pulse 74, respiratory rate 18, afebrile, and room air oxygen sat is 97%. HEENT: A small abrasion over the chin. NECK: Supple. LUNGS: Clear. CARDIAC: Regular rhythm and rate. Normal S1 and S2 with no murmur. ABDOMEN: Soft. No guarding or rebound. EXTREMITIES: No edema. LABORATORY DATA: Labs from admission were re-reviewed. Urine culture negative to date. IMPRESSION: 1. Dehydration. 2. Hypernatremia. 3. Hypovolemia. 4. Toxic and metabolic encephalopathies. 5. Dementia with confusion. 6. History of head and neck cancer. 7. Immobility. 8. Functional decline. 9. Hypothyroidism. PLAN: 1. Hypotonic IV fluid hydration. 2. Empiric antibiotics. 3. Swallow evaluation to follow. 4. Thyroid replacement. 5. Physical and occupational therapy assessments to follow as well. Adan Rodríguez M.D. DR: ION JOB#: [id number] CC:
[2017-05-09] MEDS: D5 1/2NS 1,000 ML IV SCH ×2 (06:10→11:52)
[2017-05-09 07:01] LABS: EOSINOPHILS % (AUTO) 2.8 % (0.0-3.0); LYMPHOCYTES % (AUTO) 26.5 % (20.0-45.0); MEAN CORPUSCULAR HEMOGLOBIN 29.7 PG (27.0-31.0); MEAN CORPUSCULAR HGB CONC 33.6 G/DL (32.0-36.0); MEAN CORPUSCULAR VOLUME 88 FL (80-99); MEAN PLATELET VOLUME 11.1 FL (6.5-10.1); MONOCYTES % (AUTO) 7.9 % (1.0-10.0); NEUTROPHILS % (AUTO) 61.8 % (45.0-75.0); PLATELET COUNT 111 K/UL (150-450); RED BLOOD COUNT 4.14 M/UL (4.20-5.40); RED CELL DISTRIBUTION WIDTH 14.6 % (11.6-14.8); WHITE BLOOD COUNT 6.9 K/UL (4.8-10.8)
[2017-05-09 07:08] LABS: ALANINE AMINOTRANSFERASE 9 U/L (3-33); ALBUMIN/GLOBULIN RATIO 1.1 (1.0-2.7); ANION GAP 11 (5-15); ASPARTATE AMINO TRANSFERASE 16 U/L (5-40); CALCIUM 8.9 mg/dL (8.6-10.2); CARBON DIOXIDE 24 mEQ/L (20-30); CHLORIDE 104 mEQ/L (98-107); CREATININE 1.3 mg/dL (0.5-0.9); HEMOLYSIS 3; MAGNESIUM 1.9 mg/dL (1.7-2.5); POTASSIUM 4.3 mEQ/L (3.4-4.9); SODIUM 139 mEQ/L (135-145)
[2017-05-09] MEDS: Heparin 5000 units/ml inj SUBQ SCH ×2 (09:00→20:47)
--- NOTE | 2017-05-09 11:24 | General Progress Note ---
Assessment/Plan Problem List: (1) Acute renal failure ICD Codes: N17.9 - Acute kidney failure, unspecified SNOMED: 27241162 Qualifiers: Qualified Codes: N17.9 - Acute kidney failure, unspecified (2) Hypernatremia ICD Codes: E87.0 - Hyperosmolality and hypernatremia SNOMED: 66955278 (3) Sepsis ICD Codes: A41.9 - Sepsis, unspecified organism SNOMED: 94673435 (4) UTI (urinary tract infection) ICD Codes: N39.0 - Urinary tract infection, site not specified SNOMED: 08468764 (5) Dehydration ICD Codes: E86.0 - Dehydration SNOMED: 77202488 (6) Altered mental status ICD Codes: R41.82 - Altered mental status, unspecified SNOMED: 706655107 Status: stable, progressing Assessment/Plan ivf iv abx follow up cultures pt/ot eval dementia rx bp rx Subjective ROS Limited/Unobtainable: No Constitutional: Reports: malaise, weakness HEENT: Reports: no symptoms Cardiovascular: Reports: no symptoms Respiratory: Reports: no symptoms Gastrointestinal/Abdominal: Reports: poor fluid intake Genitourinary: Reports: no symptoms Neurologic/Psychiatric: Reports: pre-existing deficit Endocrine: Reports: no symptoms Hematologic/Lymphatic: Reports: no symptoms Allergies: Coded Allergies: NO KNOWN ALLERGIES (Verified Allergy, Unknown, 03/14/17) NO KNOWN DRUG ALLERGIES (Verified Allergy, Unknown, 03/14/17) UNABLE TO ASSESS (Unverified , 05/07/17) All Systems: reviewed and negative except above Subjective resting. no new complaints. follows commands. still confused. Objective Last 24 Hour Vital Signs Date Time Temp Pulse Resp B/P (MAP) Pulse Ox O2 Delivery O2 Flow Rate FiO2 05/09/17 08:00 97.6 70 20 135/83 100 Room Air 05/09/17 04:00 98.2 70 18 93/57 96 Room Air 05/09/17 00:00 97.4 74 18 108/64 96 Room Air 05/08/17 20:00 97.2 77 18 119/66 97 Room Air 05/08/17 15:50 97.6 74 18 100/85 97 Room Air 05/08/17 12:06 97.7 74 17 101/64 97 Room Air Intake and Output 05/09/17 05/10/17 19:00 07:00 Intake Total 240 ml Output Total 500 ml Balance -260 ml Intake Oral 240 ml Output Urine Total 500 ml Laboratory Tests 05/09/17 05:20: White Blood Count 6.9, Red Blood Count 4.14L, Hemoglobin 12.3, Hematocrit 36.5L , Mean Corpuscular Volume 88, Mean Corpuscular Hemoglobin 29.7, Mean Corpuscular Hemoglobin Concent 33.6, Red Cell Distribution Width 14.6, Platelet Count 111L, Mean Platelet Volume 11.1H, Neutrophils (%) (Auto) 61.8, Lymphocytes (%) (Auto) 26.5, Monocytes (%) (Auto) 7.9, Eosinophils (%) (Auto) 2.8, Basophils (%) (Auto) 1.0, Sodium Level 139, Potassium Level 4.3, Chloride Level 104, Carbon Dioxide Level 24, Anion Gap 11, Blood Urea Nitrogen 23, Creatinine 1.3H, Estimat Glomerular Filtration Rate , Glucose Level 91, Calcium Level 8.9, Magnesium Level 1.9, Total Bilirubin 0.3, Aspartate Amino Transf (AST /SGOT) 16, Alanine Aminotransferase (ALT/SGPT) 9, Alkaline Phosphatase 51, Total Protein 6.0L, Albumin 3.2L, Globulin 2.8, Albumin/Globulin Ratio 1.1 Height (Feet): 5 Height (Inches): 4.00 Weight (Pounds): 130 General Appearance: WD/WN, alert Neck: supple Cardiovascular: normal rate, regular rhythm Respiratory/Chest: chest wall non-tender, lungs clear, normal breath sounds, no respiratory distress Abdomen: normal bowel sounds, non tender, soft, no organomegaly Edema: no edema noted Arm (L), no edema noted Arm (R), no edema noted Leg (L), no edema noted Leg (R), no edema noted Pedal (L), no edema noted Pedal (R), no edema noted Generalized Neurologic: alert, responsive, disoriented Skin: normal pigmentation IRVING ALVARENGA May 09, 2017 11:24
[2017-05-09] MEDS: cefTRIAXone 1 GM in D5W 55 ML IVPB SCH (16:34)
[2017-05-09] MEDS: Lyrica 50mg cap ORAL SCH (20:45)
[2017-05-10 04:00] VITALS: BP 109/65
[2017-05-10] MEDS: D5 1/2NS 1,000 ML IV SCH (06:40)
--- NOTE | 2017-05-10 07:15 | Progress Note ---
DATE: 05/09/2017 CARDIOLOGY PROGRESS NOTE SUBJECTIVE: The patient is confused. She is unable to cooperate due to her confusion. She does follow commands and listens to me specifically as she recognizes me. OBJECTIVE: VITAL SIGNS: Blood pressure 93/57 earlier, now 135/83; heart rate 70; and respiratory rate 20. She is afebrile. LUNGS: Clear. CARDIAC: Regular. ABDOMEN: Soft. EXTREMITIES: With dependent edema. LABORATORY DATA: White count 6.9 and hemoglobin 12.3. BUN 23, creatinine 1.3, potassium 4.3, and albumin 3.2. IMPRESSION: 1. Dehydration. 2. Hypernatremia and hypovolemia, resolving. 3. Lactic acidosis, recovered. 4. Hypothyroidism, on replacement therapy. 5. Mild protein-calorie malnutrition. 6. Leukocytosis, resolved. 7. Hemoconcentration, resolved. 8. Mild thrombocytopenia noted, but with no signs of bleeding. PLAN: 1. Continue hydration. 2. Taper off as oral intake improves. 3. Mobilize as able. 4. Empiric antibiotics. 5. Thyroid replacement. Adan Rodríguez M.D. DR: EMILIANA JOB#: [id number] CC:
[2017-05-10 08:35] VITALS: BP 106/66
[2017-05-10] MEDS: Heparin 5000 units/ml inj SUBQ SCH ×2 (09:00→20:17)
[2017-05-10 12:42] VITALS: BP 112/59
[2017-05-10 15:51] VITALS: BP 114/63
[2017-05-10] MEDS: cefTRIAXone 1 GM in D5W 55 ML IVPB SCH (16:00)
--- NOTE | 2017-05-10 16:49 | Cardiology Report ---
APPROVED REPORT EKG Measurement Heart [id number] Sinus tachycardia Otherwise normal ECG
--- NOTE | 2017-05-10 19:53 | General Progress Note ---
Assessment/Plan Problem List: (1) Acute renal failure ICD Codes: N17.9 - Acute kidney failure, unspecified SNOMED: 13809274 Qualifiers: Qualified Codes: N17.9 - Acute kidney failure, unspecified (2) Hypernatremia ICD Codes: E87.0 - Hyperosmolality and hypernatremia SNOMED: 54328294 (3) Sepsis ICD Codes: A41.9 - Sepsis, unspecified organism SNOMED: 70443327 (4) UTI (urinary tract infection) ICD Codes: N39.0 - Urinary tract infection, site not specified SNOMED: 83803995 (5) Dehydration ICD Codes: E86.0 - Dehydration SNOMED: 58907757 (6) Altered mental status ICD Codes: R41.82 - Altered mental status, unspecified SNOMED: 422847921 Status: stable, progressing Assessment/Plan cotn ivf monitor volume status and labs iv abx follow up cultures pt/ot eval dementia rx bp rx consider snf or aru Subjective ROS Limited/Unobtainable: No Constitutional: Reports: malaise, weakness HEENT: Reports: no symptoms Cardiovascular: Reports: no symptoms Respiratory: Reports: no symptoms Gastrointestinal/Abdominal: Reports: no symptoms Genitourinary: Reports: no symptoms Neurologic/Psychiatric: Reports: pre-existing deficit Endocrine: Reports: no symptoms Hematologic/Lymphatic: Reports: no symptoms Allergies: Coded Allergies: NO KNOWN ALLERGIES (Verified Allergy, Unknown, 03/14/17) NO KNOWN DRUG ALLERGIES (Verified Allergy, Unknown, 03/14/17) UNABLE TO ASSESS (Unverified , 05/07/17) All Systems: reviewed and negative except above Subjective no events. awake and alert, follows commands. denies cp/sob. no dysuria. on abx and ivf. renal fxn improving, Objective Last 24 Hour Vital Signs Date Time Temp Pulse Resp B/P (MAP) Pulse Ox O2 Delivery O2 Flow Rate FiO2 05/10/17 15:51 97.9 79 20 114/63 96 Room Air 05/10/17 12:42 97.7 72 18 112/59 97 Room Air 05/10/17 08:35 97.7 77 18 106/66 96 Room Air 05/10/17 04:00 97.8 73 18 109/65 95 Room Air 05/09/17 23:56 97.9 77 18 111/59 96 Room Air 05/09/17 20:00 97.8 81 18 123/72 98 Room Air Intake and Output 05/10/17 05/11/17 19:00 07:00 # Bowel Movements 1 Height (Feet): 5 Height (Inches): 4.00 Weight (Pounds): 130 Objective General Appearance: WD/WN, alert Neck: supple Cardiovascular: normal rate, regular rhythm Respiratory/Chest: chest wall non-tender, lungs clear, normal breath sounds, no respiratory distress Abdomen: normal bowel sounds, non tender, soft, no organomegaly Edema: no edema noted Arm (L), no edema noted Arm (R), no edema noted Leg (L), no edema noted Leg (R), no edema noted Pedal (L), no edema noted Pedal (R), no edema noted Generalized Neurologic: alert, responsive, disoriented Skin: normal pigmentation IRVING ALVARENGA May 10, 2017 19:53
[2017-05-10 20:00] VITALS: BP 104/64
[2017-05-10] MEDS: Lyrica 50mg cap ORAL SCH (20:17)
[2017-05-11] VITALS: BP 115/63
[2017-05-11] MEDS: D5 1/2NS 1,000 ML IV SCH ×2 (03:39→23:30)
[2017-05-11 04:00] VITALS: BP 121/72
--- NOTE | 2017-05-11 04:45 | Progress Note ---
DATE: 05/10/2017 CARDIOLOGY PROGRESS NOTE SUBJECTIVE: The patient remains confused at times, but participated with PT and OT evaluations. Intake is fair. She remains on IV fluids. Renal parameters and volume status are improving. Cultures remained negative. OBJECTIVE: VITAL SIGNS: Blood pressure 114/63, pulse 79, and respirations 20. NECK: Supple. LUNGS: Clear. CARDIAC: Regular. Normal S1 and S2. ABDOMEN: Soft. EXTREMITIES: No edema. IMPRESSION: 1. Hypovolemia. 2. Dehydration. 3. Hypernatremia. 4. Hypothyroidism. 5. Metabolic encephalopathy. 6. Dementia. 7. Functional decline. 8. History of head and neck cancer. 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 PLAN: 1. Discontinue antimicrobials after 72 hours. 2. Continue cautious hydration. 3. Mobilize. 4. Refer to ARU. Adan Rodríguez M.D. DR: Jose Martin JOB#: [id number] CC:
[2017-05-11 07:10] LABS: MEAN CORPUSCULAR HEMOGLOBIN 30.8 PG (27.0-31.0); MEAN CORPUSCULAR HGB CONC 34.3 G/DL (32.0-36.0); MEAN CORPUSCULAR VOLUME 90 FL (80-99); MEAN PLATELET VOLUME 11.2 FL (6.5-10.1); PLATELET COUNT 89 K/UL (150-450); RED CELL DISTRIBUTION WIDTH 15.4 % (11.6-14.8); WHITE BLOOD COUNT 6.7 K/UL (4.8-10.8)
[2017-05-11 07:18] LABS: ANION GAP 9 (5-15); CALCIUM 9.3 mg/dL (8.6-10.2); CARBON DIOXIDE 23 mEQ/L (20-30); CHLORIDE 103 mEQ/L (98-107); CREATININE 1.2 mg/dL (0.5-0.9); HEMOLYSIS 3; POTASSIUM 3.9 mEQ/L (3.4-4.9); SODIUM 135 mEQ/L (135-145)
[2017-05-11 08:13] LABS: BASOPHILS % (MANUAL) 1 % (0-2); EOSINOPHILS % (MANUAL) 2 % (0-3); LYMPHOCYTES % (MANUAL) 26 % (20-45); NEUTROPHILS % (MANUAL) 63 % (45-75); TOTAL CELLS COUNTED 100
[2017-05-11] MEDS: Heparin 5000 units/ml inj SUBQ SCH ×2 (08:13→21:00)
[2017-05-11] MEDS: Lactobacillus-GG tablet ORAL SCH ×3 (08:13→16:56)
[2017-05-11 08:15] VITALS: BP 112/63
[2017-05-11 08:15] LABS: BAND NEUTROPHILS % (MANUAL) 0 % (0-8); PLATELET ESTIMATE DECREASED; PLATELET MORPHOLOGY NORMAL
[2017-05-11 08:16] LABS: ANISOCYTOSIS 1+
--- NOTE | 2017-05-11 08:33 | General Progress Note ---
Assessment/Plan Problem List: (1) Acute renal failure ICD Codes: N17.9 - Acute kidney failure, unspecified SNOMED: 23035617 Qualifiers: Qualified Codes: N17.9 - Acute kidney failure, unspecified (2) Hypernatremia ICD Codes: E87.0 - Hyperosmolality and hypernatremia SNOMED: 21860694 (3) Sepsis ICD Codes: A41.9 - Sepsis, unspecified organism SNOMED: 75316986 (4) UTI (urinary tract infection) ICD Codes: N39.0 - Urinary tract infection, site not specified SNOMED: 36726630 (5) Dehydration ICD Codes: E86.0 - Dehydration SNOMED: 18227776 (6) Altered mental status ICD Codes: R41.82 - Altered mental status, unspecified SNOMED: 954034304 (7) Toxic metabolic encephalopathy ICD Codes: G92 - Toxic encephalopathy SNOMED: 573380599 Status: stable, progressing Assessment/Plan cotn ivf monitor volume status and labs dc iv abx follow up cultures pt/ot dementia rx bp rx consider aru Subjective ROS Limited/Unobtainable: No Constitutional: Reports: malaise, weakness HEENT: Reports: no symptoms Cardiovascular: Reports: no symptoms Respiratory: Reports: no symptoms Gastrointestinal/Abdominal: Reports: no symptoms Genitourinary: Reports: no symptoms Neurologic/Psychiatric: Reports: pre-existing deficit Endocrine: Reports: no symptoms Hematologic/Lymphatic: Reports: no symptoms Allergies: Coded Allergies: NO KNOWN ALLERGIES (Verified Allergy, Unknown, 03/14/17) NO KNOWN DRUG ALLERGIES (Verified Allergy, Unknown, 03/14/17) UNABLE TO ASSESS (Unverified , 05/07/17) All Systems: reviewed and negative except above Subjective no events. awake and alert, follows commands. denies cp/sob. no dysuria. on abx and ivf. renal fxn improving, PT noted. Objective Last 24 Hour Vital Signs Date Time Temp Pulse Resp B/P (MAP) Pulse Ox O2 Delivery O2 Flow Rate FiO2 05/11/17 08:15 97.3 72 20 112/63 95 Room Air 05/11/17 04:00 97.2 81 21 121/72 98 Room Air 05/11/17 00:00 97.3 79 19 115/63 96 Room Air 05/10/17 20:00 98.8 77 18 104/64 97 Room Air 05/10/17 15:51 97.9 79 20 114/63 96 Room Air 05/10/17 12:42 97.7 72 18 112/59 97 Room Air 05/10/17 08:35 97.7 77 18 106/66 96 Room Air Intake and Output 05/11/17 05/12/17 19:00 07:00 Intake Total 360 ml Balance 360 ml Intake Oral 360 ml # Voids 1 # Bowel Movements 1 Laboratory Tests 05/11/17 04:55: White Blood Count 6.7, Red Blood Count 4.00L, Hemoglobin 12.3, Hematocrit 35.9L , Mean Corpuscular Volume 90, Mean Corpuscular Hemoglobin 30.8, Mean Corpuscular Hemoglobin Concent 34.3, Red Cell Distribution Width 15.4H, Platelet Count 89L, Mean Platelet Volume 11.2H, Neutrophils (%) (Auto) , Lymphocytes (%) (Auto) , Monocytes (%) (Auto) , Eosinophils (%) (Auto) , Basophils (%) (Auto) , Differential Total Cells Counted 100, Neutrophils % ( Manual) 63, Lymphocytes % (Manual) 26, Monocytes % (Manual) 8, Eosinophils % ( Manual) 2, Basophils % (Manual) 1, Band Neutrophils 0, Platelet Estimate DecreasedL, Platelet Morphology Normal, Anisocytosis 1+, Sodium Level 135, Potassium Level 3.9, Chloride Level 103, Carbon Dioxide Level 23, Anion Gap 9, Blood Urea Nitrogen 17, Creatinine 1.2H, Estimat Glomerular Filtration Rate , Glucose Level 94, Calcium Level 9.3 Height (Feet): 5 Height (Inches): 4.00 Weight (Pounds): 130 Objective General Appearance: WD/WN, alert Neck: supple Cardiovascular: normal rate, regular rhythm Respiratory/Chest: chest wall non-tender, lungs clear, normal breath sounds, no respiratory distress Abdomen: normal bowel sounds, non tender, soft, no organomegaly Edema: no edema noted Arm (L), no edema noted Arm (R), no edema noted Leg (L), no edema noted Leg (R), no edema noted Pedal (L), no edema noted Pedal (R), no edema noted Generalized Neurologic: alert, responsive, disoriented Skin: normal pigmentation IRVING ALVARENGA May 11, 2017 08:33
[2017-05-11] MEDS ORDERED: Tubing IV Secondary IV ONE (11:01)
[2017-05-11] MEDS ORDERED: D5 1/2NS 1000ml IV ONE (11:01)
[2017-05-11 11:47] VITALS: BP 116/55
[2017-05-11 15:44] VITALS: BP 105/77
[2017-05-11] MEDS: cefTRIAXone 1 GM in D5W 55 ML IVPB SCH (16:23)
[2017-05-11 19:19] VITALS: BP 109/64
[2017-05-11] MEDS: Lyrica 50mg cap ORAL SCH (21:08)
[2017-05-12] VITALS: BP 119/82
[2017-05-12 04:00] VITALS: BP 109/80
--- NOTE | 2017-05-12 05:00 | Progress Note ---
DATE: 05/11/2017 CARDIOLOGY PROGRESS NOTE SUBJECTIVE: The patient is more awake, alert, and following commands. She has been seen by physical and occupational therapy. She is being considered for ARU. OBJECTIVE: VITAL SIGNS: Blood pressure is 112/63, pulse 72, and respiratory rate 20. LUNGS: Clear. CARDIAC: Regular. ABDOMEN: Soft. EXTREMITIES: No edema. LABORATORY DATA: Laboratories noted. IMPRESSION AND PLAN: 1. Stabilizing hemodynamics and metabolic parameters. 2. Discontinue intravenous fluids in anticipation of discharge. 3. Encourage oral intake. 4. Discontinue intravenous antibiotics. Adan Rodríguez M.D. DR: Keanu JOB#: [id number] CC:
[2017-05-12 08:15] VITALS: BP 127/84
[2017-05-12] MEDS: Heparin 5000 units/ml inj SUBQ SCH (08:36)
[2017-05-12] MEDS: Lactobacillus-GG tablet ORAL SCH ×2 (08:52→12:53)
--- NOTE | 2017-05-12 09:06 | General Progress Note ---
Assessment/Plan Problem List: (1) Acute renal failure ICD Codes: N17.9 - Acute kidney failure, unspecified SNOMED: 55552707 Qualifiers: Qualified Codes: N17.9 - Acute kidney failure, unspecified (2) Hypernatremia ICD Codes: E87.0 - Hyperosmolality and hypernatremia SNOMED: 66505739 (3) Sepsis ICD Codes: A41.9 - Sepsis, unspecified organism SNOMED: 86792111 (4) UTI (urinary tract infection) ICD Codes: N39.0 - Urinary tract infection, site not specified SNOMED: 48401557 (5) Dehydration ICD Codes: E86.0 - Dehydration SNOMED: 70201788 (6) Altered mental status ICD Codes: R41.82 - Altered mental status, unspecified SNOMED: 163644489 (7) Toxic metabolic encephalopathy ICD Codes: G92 - Toxic encephalopathy SNOMED: 473468060 Status: stable, progressing Assessment/Plan monitor volume status and labs dc iv abx follow up cultures pt/ot dementia rx bp rx consider aru Subjective ROS Limited/Unobtainable: No Constitutional: Reports: malaise, weakness HEENT: Reports: no symptoms Cardiovascular: Reports: no symptoms Respiratory: Reports: no symptoms Gastrointestinal/Abdominal: Reports: no symptoms Genitourinary: Reports: no symptoms Neurologic/Psychiatric: Reports: pre-existing deficit Endocrine: Reports: no symptoms Hematologic/Lymphatic: Reports: no symptoms Allergies: Coded Allergies: NO KNOWN ALLERGIES (Verified Allergy, Unknown, 03/14/17) NO KNOWN DRUG ALLERGIES (Verified Allergy, Unknown, 03/14/17) UNABLE TO ASSESS (Unverified , 05/07/17) All Systems: reviewed and negative except above Subjective no events. awake and alert, follows commands. denies cp/sob. no dysuria. off abx. off ivf. Objective Last 24 Hour Vital Signs Date Time Temp Pulse Resp B/P (MAP) Pulse Ox O2 Delivery O2 Flow Rate FiO2 05/12/17 08:15 97.6 77 18 127/84 96 Room Air 05/12/17 04:00 97.5 67 20 109/80 97 Room Air 05/12/17 00:00 97.7 69 19 119/82 97 Room Air 05/11/17 19:19 97.2 80 19 109/64 93 Room Air 05/11/17 18:37 97.8 05/11/17 15:44 97.8 79 20 105/77 96 Room Air 05/11/17 11:47 98.0 74 20 116/55 95 Room Air Height (Feet): 5 Height (Inches): 4.00 Weight (Pounds): 130 Objective General Appearance: WD/WN, alert Neck: supple Cardiovascular: normal rate, regular rhythm Respiratory/Chest: chest wall non-tender, lungs clear, normal breath sounds, no respiratory distress Abdomen: normal bowel sounds, non tender, soft, no organomegaly Edema: no edema noted Arm (L), no edema noted Arm (R), no edema noted Leg (L), no edema noted Leg (R), no edema noted Pedal (L), no edema noted Pedal (R), no edema noted Generalized Neurologic: alert, responsive, disoriented Skin: normal pigmentation IRVNIG ALVARENGA May 12, 2017 09:06
[2017-05-12 11:51] VITALS: BP 117/74
[2017-05-12] MEDS ORDERED: D5 1/2NS 1000ml IV ONE (14:36)
[2017-05-12] MEDS ORDERED: Tubing IV Secondary IV ONE (14:36)
[2017-05-12] MEDS ORDERED: NS 275ml ONE (14:36)
[2017-05-12] MEDS ORDERED: cefTRIAXone 1 GM in D5W 55 ML IVPB SCH (16:00)
--- NOTE | 2017-05-13 00:15 | Progress Note ---
DATE: 05/12/2017 CARDIOLOGY PROGRESS NOTE SUBJECTIVE: The patient is periodically confused, more alert. No respiratory distress. Oral intake improving. Cultures remain negative. OBJECTIVE: VITAL SIGNS: Blood pressure 109/80, pulse 67, respiratory rate 20, no fever and room air oxygen 91%. LUNGS: Clear. CARDIAC: Regular. ABDOMEN: Soft. EXTREMITIES: No edema. IMPRESSION AND PLAN: Rehydrated. No signs of volume depletion or acute vascular insufficiency. Acute renal failure has resolved. The patient has residual toxic and metabolic encephalopathies as well as functional decline. She continues to require thyroid replacement. Agree with short course of acute rehabilitation unit prior to returning home. Discharge medication regimen reviewed. Adan Rodríguez M.D. DR: RADHA JOB#: [id number] CC:
--- NOTE | 2017-05-15 10:11 | Discharge Summary ---
Discharge Summary Hospital Course Date of Admission May 07, 2017 at 14:26 Date of Discharge May 12, 2017 at 14:37 Admitting Diagnosis ams/dehydration HPI Debbie Byrd is a 81 year old female who was admitted on May 07, 2017 at 14:26 for Ams/Dehydration Hospital Course dc summary #[id number] Discharge Medications Continued Medications: Levothyroxine Sodium* (Levothyroxine Sodium*) 150 Mcg Tablet 150 MCG ORAL ACBREAKFAST for 30 Days, TAB Take in the morning on an empty stomach, at least 30 minutes before food. Pregabalin (Lyrica) 50 Mg Capsule 50 MG ORAL BEDTIME for 30 Days, CAP Discontinued Medications: Unable to Obtain Medications (Unable To Obtain Meds) 1 Ea Ea Discharge Condition Upon Discharge: stable Discharge Disposition Patient was discharged to Acute Rehab Hosp/Unit(62) Discharge Diagnoses: Discharge Instructions Discharge Instructions Special Instructions I have been assigned to complete a D/C Summary on this account. I was not involved in the patient management Samantha Telles NP (Vanchtein) May 15, 2017 10:11
--- NOTE | 2017-05-16 01:30 | Discharge Summary 2 SIG ---
DATE OF ADMISSION: 05/07/2017 DATE OF DISCHARGE: 05/12/2017 REASON FOR ADMISSION: A 81-year-old female with history of hypertension, dementia, head and neck cancer, and hypothyroidism presented with altered mental status. In the emergency department, it was found that she had leukocytosis, WBC 11.9. Lactic acid was 2.7. Troponin was negative. Sodium 150, BUN 45, and creatinine 2.3. Urinalysis revealed evidence of UTI. The patient admitted for further management. ADMITTING DIAGNOSES: 1. Acute toxic metabolic encephalopathy. 2. Acute renal failure. 3. Hypernatremia. 4. Sepsis. 5. Urinary tract infection. HOSPITAL COURSE: The patient admitted. The patient started on the IV fluids. Renal parameters and electrolytes were closely monitored. Nephrotoxics were avoided. The patient started on empiric antibiotics and to follow up with the culture. [employer] closely followed the patient. Acute renal failure and hypernatremia secondary to dehydration due to hypovolemia. Volume was replaced with intravenous hydration. Renal parameters improved. Prior to discharge, creatinine down to 1.2 and BUN down to 17. Leukocytosis resolved. Hemoglobin and hematocrit stable. Urine culture negative. Blood culture negative. Status post treatment with antibiotics. Antibiotic discontinued. Chest x-ray revealed no acute cardiopulmonary pathology. Fall precautions were maintained. The patient was mobilized and worked with physical and occupational therapy. According to evaluation by PT and OT, the patient would benefit from short-term acute rehabilitation center. The discharge planning was working on transfer the patient to acute rehabilitation Center. The patient with history of hypothyroidism. TSH was elevated. Dose of levothyroxine was titrated. The patient has a history of hypertension, however, on admission was normotensive. No blood pressure medication this time, closely monitor. Sodium down to normal. Transfer was arranged to acute rehab at [facility]. The patient rehydrated, no signs of volume depletion or acute vascular insufficiency. Acute renal failure resolved and hypernatremia resolved. No leukocytosis. However, the patient still has residual toxic and metabolic encephalopathy along with functional decline. She continued to require thyroid replacement. She will benefit from short course of acute rehabilitation unit with physical and occupational therapy prior to returning home. DISCHARGE DIAGNOSES: 1. Acute toxic metabolic encephalopathy. 2. Acute renal failure, resolved. 3. Hypernatremia, resolved. 4. Dehydration secondary to hypovolemia, resolved. 5. Sepsis. 6. Possible urinary tract infection. 7. History of head and neck cancer. 8. 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 9. Hypothyroidism. 10. Hypertension with currently normotensive. DISCHARGE MEDICATIONS: See medication reconciliation list. DISCHARGE INSTRUCTIONS: The patient discharged to short-term acute rehabilitation center at [facility]. FOLLOWUP: Followup with medical doctor at the facility. Urbano Dong M.D. I have been assigned to dictate discharge summary on this account and I was not involved in the patient's management. Samantha [facility] NAtilioPAtilio DR: Deborah JOB#: [id number] CC:
== END 2017-05-12 14:37 | disposition short-term general hospital (02) | DRG 871 ==
LOC: EDBD 13:37 → EMR 14:23 → 4E 14:26 → EDBEDREQ 20:14 → 4E 05-10 06:34
DX: A41.9 Sepsis, unspecified organism (principal); G92 Toxic encephalopathy; N17.9 Acute kidney failure, unspecified; E87.0 Hyperosmolality and hypernatremia; E44.1 Mild protein-calorie malnutrition; D69.6 Thrombocytopenia, unspecified; N39.0 Urinary tract infection, site not specified; E86.0 Dehydration; E86.1 Hypovolemia; E03.9 Hypothyroidism, unspecified; F03.90 Unspecified dementia, unspecified severity, without behavioral disturbance, psychotic disturbance, mood disturbance, and anxiety; I10 Essential (primary) hypertension; Z85.89 Personal history of malignant neoplasm of other organs and systems; G89.29 Other chronic pain
CPT/HCPCS: 36415; 71010; 80048; 80053; 81003; 82550; 82553; 83605; 83735; 84443; 84484; 85007; 85025; 87040; 87086; 93005; 99285

== ENCOUNTER 2020-10-21 17:30 | Inpatient (IN) | payer MEDICARE, BC ==
[~2020-10-21] VITALS: Ht 160 cm; Wt 47.6 kg
[~2020-10-21 17:30] MED LIST changes: +UNOBMED
[2020-10-21] MEDS ORDERED: Morphine Sulfate 2mg/ml Inj(IV/IM USE ONLY) IVP SCH (18:00)
--- NOTE | 2020-10-21 19:37 | NUR ---
NURSE NOTES: Patient came in as direct admit at 1830 on gurney with two transporters. Patient is oriented to self, very confused and demented. Vitals: BP: unable to obtain because the patient refuses to stay still. O2: 97% Respiration: 19 Pulse rate: 62. Patient is a poor historian and is not able to give any medical history. RN unable to insert IV because the patient is combative. RN called her many times but unable to reach. The voice mail is not set up. Will endorse to the next shift nurse about contacting the family member for medical history and IV insertion and administration of medications due at 6pm.
[2020-10-21 19:40] LABS: HEMATOCRIT 47.9 % (37.0-47.0); HEMOGLOBIN 15.6 G/DL (12.0-16.0); MEAN CORPUSCULAR VOLUME 85 FL (80-99); PLATELET COUNT 121 K/UL (150-450); RED BLOOD COUNT 5.65 M/UL (4.20-5.40); WHITE BLOOD COUNT 14.8 K/UL (4.8-10.8)
[2020-10-21 19:50] LABS: INR 1.1 (0.9-1.1)
[2020-10-21 20:00] VITALS: BP 147/92
[2020-10-21 20:13] LABS: ALBUMIN 3.8 G/DL (3.4-5.0); ALBUMIN/GLOBULIN RATIO 0.7 (1.0-2.7); BILIRUBIN,TOTAL 1.3 MG/DL (0.2-1.0); CALCIUM 10.8 MG/DL (8.5-10.1); CREATININE 1.2 MG/DL (0.55-1.30); POTASSIUM 3.6 MMOL/L (3.5-5.1)
--- NOTE | 2020-10-21 20:15 | NUR ---
NURSE HAND-OFF: Important Events on Shift:direct admission, pt confused and refusing care, assessments, needs IV for medications Patient Status: confused, combative Diet: regular, soft mechanical chopped Pending Orders: consent for hemiarthroplasty Pending Results/Labs: Pending MD notification:ask outdoor emergency care technician to send images of Xray to Dr. Del Angel once ready Latest Vital Signs: Temperature , Pulse , B/P /, Respiratory Rate , O2 SAT , , O2 Flow Rate . Vital Sign Comment: O2: 97%, BP: unable to obtain, RR: 18, Temp: 97.6 Latest Garces Fall Score: 95 Fall Risk: High Risk Safety Measures: Call light Within Reach, Bed Alarm Zone 1, Side Rails Side Rails x3, Bed position Low and Locked. Fall Precautions: Yellow Socks Yellow Gown Door Sign Patient Fall Education Report given to Armin.
[2020-10-21 20:51] LABS: BILIRUBIN,DIRECT 0.3 MG/DL (0.0-0.3)
[2020-10-21] MEDS: celeBREX 200mg Cap **SURGERY PATIENTS ONLY ORAL SCH (21:55)
[2020-10-21] MEDS: Lyrica 50mg cap ORAL SCH (21:55)
--- NOTE | 2020-10-21 22:00 | NUR ---
NURSE NOTES: Pt is in bed, asleep. No acute distress noted.Pt is disoriented. Pt is uncooperative with care.Vitals stable. BP is elevated 151/92. Iv access established on the right forearm 22G, IV site wrapped with Kerlix to prevent patient from removing it. Pt is able to eat food. Pt complains of pain on left hip when repositioned, no wounds present. Pain medication given as ordered PRN. Room Air. Pt has a consent ordered for Left hip hemiarthroplasty; unable to obtain consent from patient as she is confused. 's phone number called multiple times ), no one answered the phone. Unable to obtain past medical history. Fall precautions in place, Bed alarm on, call light within reach. Bed locked low in position,side rails up . Pt is close to the nursing station. Pt instructed to call for assistance and not to get out of bed. Pt will be monitored.
--- NOTE | 2020-10-21 22:29 | History and Physical Report ---
DATE OF ADMISSION: 10/21/2020 CHIEF COMPLAINT: Left hip fracture. HISTORY OF PRESENT ILLNESS: The patient is an 84-year-old female with history of dementia, hypertension, hypothyroidism, head and neck cancer, who presented with complaints of a mechanical fall at home with her caregiver. An outpatient CT scan confirmed a left hip fracture and she is now admitted for orthopedic evaluation. The patient currently complains only of pain in the left hip. There is no reports of head trauma. No loss of consciousness. No chest pain. No shortness of breath. No heart palpitations. PAST MEDICAL HISTORY: As above. PAST SURGICAL HISTORY: Includes head and neck surgery. CURRENT MEDICATIONS: Reconciled and reviewed. ALLERGIES: None. FAMILY HISTORY: Significant for dementia. SOCIAL HISTORY: Negative for alcohol or drugs. The patient is a prior smoker. REVIEW OF SYSTEMS: GENERAL: No fevers or chills. HEENT: No headaches or visual changes. CARDIOPULMONARY: No chest pain or shortness of breath. GASTROINTESTINAL: No nausea or vomiting. GENITOURINARY: No urgency or frequency. MUSCULOSKELETAL: No joint pain or swelling. SKIN: No rash. NEUROLOGIC: No history of seizures. Positive for history of memory loss. No focal weakness. PHYSICAL EXAMINATION: VITAL SIGNS: Temperature 98, blood pressure 120/76, pulse 80, respirations 20. GENERAL: The patient is well developed, in no apparent distress. Awake, alert, and oriented x2. HEENT: Head is normocephalic and atraumatic. Sclerae anicteric. Oropharynx clear. NECK: Supple. HEART: Regular rate and rhythm without murmurs, rubs, or gallops. LUNGS: Clear to auscultation bilaterally. ABDOMEN: Soft, nontender, nondistended. EXTREMITIES: No clubbing or cyanosis. The patient has minimal range of motion in the left hip due to pain. LABORATORY AND DIAGNOSTIC DATA: Coags are normal. White count 15, hemoglobin 15, hematocrit 47, platelets of 121. Sodium 140, potassium 3.6, BUN 20, creatinine 1.2. Bilirubin of 1.3. TSH was 0.082. ASSESSMENT: This is an 84-year-old female with a history of dementia, hypothyroidism, history of head and neck cancer, admitted with complaints of mechanical fall and a left hip fracture. PLAN: Orthopedic consultation. Cardiology clearance for possible surgery. Follow up EKG and chest x-ray. Continue outpatient medication regimen. DVT and stress ulcer prophylaxes will be provided. Pain medications as needed. Urbano Dong M.D. DR: Elvia JOB#: [id number] CC:
--- NOTE | 2020-10-21 23:14 | Consultation ---
DATE OF CONSULTATION: 10/21/2020 CARDIOLOGY CONSULTATION CONSULTING PHYSICIAN: Adan Rodríguez MD REFERRING PHYSICIAN: Urbano Dong MD REASON FOR CONSULTATION: Preoperative cardiovascular risk assessment. HISTORY OF PRESENT ILLNESS: This 84-year-old female with Alzheimer's dementia lives at home with a caregiver. Yesterday morning while being preparing to go to a doctor's visit, she lost her balance and fell to the side on top of her caregiver who was next to her. Both fell to the ground. The caregiver is twisting her ankle and the patient landing on her left side. Subsequently she had pain with mobility. She underwent an outpatient CAT scan of the left hip that confirmed an acute fracture. Hospitalization was initiated. The patient has no history of cardiovascular disease. She had an echocardiogram just last week at my office that revealed a normal ejection fraction, mild degenerative valve disease, and no pulmonary hypertension. 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 ALLERGIES: None. FAMILY HISTORY: Notable for coronary artery disease. SOCIAL HISTORY: Prior smoker. Forty pack years. Social alcohol. No substance abuse. MEDICATIONS: Reviewed and reconciled. REVIEW OF SYSTEMS: There is no history of abnormal blood clotting. There is no history of diabetes. She is euthyroid on replacement therapy. She has not been on steroids. She rarely has used bronchodilators. There is a history of esophageal candidiasis and C. difficile colitis many years in the past. PHYSICAL EXAMINATION: VITAL SIGNS: Blood pressure 112/60, heart rate 78, respirations 18, afebrile. HEENT: Mild temporal wasting. Some scarring from the prior jaw surgery on the right and to the chin. No thrush. NECK: Supple. LUNGS: Clear. BREASTS: No breast masses. CARDIAC: Regular. Normal S1, S2 with no murmur. ABDOMEN: Soft, nontender. EXTREMITIES: With no edema. Good distal pulses. Internal rotation of the left hip noted. Mild bruise on the left hip. NEUROLOGIC: With moderate cognitive impairment, but patient responds to basic questioning. LABORATORY DATA: Pending. Outpatient electrocardiogram revealed normal sinus rhythm with no abnormalities. IMPRESSION: 1. Acute left hip fracture. 2. Mechanical fall. 3. Stable from cardiovascular standpoint for anesthesia and orthopedic surgery. PLAN: 1. Respiratory hygiene. 2. Review laboratory studies. 3. IV fluid hydration. 4. DVT prophylaxis. 5. Orthopedic surgery following evaluation by Dr. Del Angel to allow mobilization. Adan Rodríguez M.D. DR: HOWARD JOB#: [id number] CC:
[2020-10-22] VITALS (14 sets, daily range): BP systolic 81–157; BP diastolic 46–97
[2020-10-22] MEDS ORDERED: [UNRECOGNIZED DRUG - OTHER] IV ONE (00:42)
[2020-10-22] MEDS ORDERED: D5 IV ONE (00:42)
[2020-10-22] MEDS ORDERED: KCL IV ONE (00:42)
[2020-10-22] MEDS ORDERED: NS w/KCl 20mEq 1000ml 1,000 ML IV ONE (00:50)
--- NOTE | 2020-10-22 02:57 | NUR ---
NURSE NOTES: Pt is in bed, asleep. Pt tested negative for COVID-19. Vitals stable. Currently NPO. NS with 20mEq KCl running at 125ml/hr. Fall precaution in place
[2020-10-22] MEDS: Morphine Sulfate 2mg/ml Inj(IV/IM USE ONLY) IVP PRN (05:41)
[2020-10-22 06:16] LABS: APPEARANCE,URINE SLIGHTLY CLOUDY; BILIRUBIN, URINE NEGATIVE (NEGATIVE); GLUCOSE, URINE (UA) NEGATIVE (NEGATIVE); KETONES,URINE NEGATIVE (NEGATIVE); LEUKOCYTE ESTERASE ,URINE 1+ (NEGATIVE); NITRITE,URINE NEGATIVE (NEGATIVE); PH,URINE 5 (4.5-8.0); PROTEIN,URINE 2+ (NEGATIVE); UROBILINOGEN,URINE NORMAL MG/DL (0.0-1.0)
[2020-10-22 06:35] LABS: COLOR,URINE YELLOW
[2020-10-22 06:38] LABS: BASOPHILS % (AUTO) 0.6 % (0.0-2.0); EOSINOPHILS % (AUTO) 0.1 % (0.0-3.0); HEMATOCRIT 42.6 % (37.0-47.0); LYMPHOCYTES % (AUTO) 17.9 % (20.0-45.0); MEAN CORPUSCULAR VOLUME 85 FL (80-99); MONOCYTES % (AUTO) 9.4 % (1.0-10.0); PLATELET COUNT 103 K/UL (150-450); RED BLOOD COUNT 5.03 M/UL (4.20-5.40); RED CELL DISTRIBUTION WIDTH 14.2 % (11.6-14.8); WHITE BLOOD COUNT 10.7 K/UL (4.8-10.8)
--- NOTE | 2020-10-22 06:38 | NUR ---
NURSE NOTES: Alcantar inserted; 16fr. PT tolerated well. Urine sent for UA.
--- NOTE | 2020-10-22 07:15 | NUR ---
HAND OFF NOTE: Report given to FRANCISCA Valle. Informed that pt is fall risk.
--- NOTE | 2020-10-22 08:00 | NUR ---
NURSE NOTES: Pt lying in bed w/bed in lowest position and call light within reach. Pt A&Ox1, VSS, and in no apparent distress. IV site intact/asymptomatic; F/C patent/draining; and skin intact. Pt scheduled to have surgery today. Will continue to monitor.
--- NOTE | 2020-10-22 08:18 | NUR ---
EMERGENCY CONTACT RYAN OGLESBY (NIECE) [phone] Nijuanita will be the decision maker and will provide the consent
--- NOTE | 2020-10-22 08:21 | NUR ---
PHARMACY HELPER NOTE Pt's , Josef Penn [phone] does not answer a call. ANJUM spoke w/ Ryann from [facility] that pt was discharged back home in June 2020. Per Ryann, pt was not oriented. Starla Woody is listed as emergency contact [phone]. SW spoke w/ pt's niece, Starla Woody [phone], confirmed that pt's son, Titus Penn [phone] does not involve w/ pt's care/tx. Thus, she would be the next of kin. Per Starla, Josef Penn is not oriented, thus he will not be able to make a decision for pt. Starla also shares that pt has a caregiver who stays 24 hours. Starla has been involving w/ pt's care/tx and will provide the consent for procedure. Addendum: 10/22/20 at 0826 by JENNIE VALERO Next of kin is the son but he is not involved in care/tx thus Starla will take the responsibility.
[2020-10-22] MEDS: NS w/KCl 20mEq 1000ml 1,000 ML IV SCH ×2 (09:22→21:08)
[2020-10-22] MEDS: celeBREX 200mg Cap **SURGERY PATIENTS ONLY ORAL SCH ×2 (09:23→18:00)
[2020-10-22] MEDS: Lyrica 50mg cap ORAL SCH ×3 (09:23→21:52)
--- NOTE | 2020-10-22 10:40 | Anethesia Preoperative Eval ---
Anesthesia Pre-op PMH/ROS General Date of Evaluation: Oct 22, 2020 Time of Evaluation: 10:34 Anesthesiologist: Tameka ASA Score: ASA 3 Mallampati Score Class I : Soft palate, uvula, fauces, pillars visible Class II: Soft palate, uvula, fauces visible Class III: Soft palate, base of uvula visible Class IV: Only hard plate visible Mallampati Classification: Class III Surgeon: Bean Diagnosis: L hip Fx. Surgical Procedure: L hip hemiarthroplasty Anesthesia History: none Social History: smoking - h/o Family History: no anesthesia problems Allergies: Coded Allergies: NO KNOWN ALLERGIES (Verified Allergy, Unknown, 03/14/17) NO KNOWN DRUG ALLERGIES (Verified Allergy, Unknown, 03/14/17) UNABLE TO ASSESS (Unverified , 05/07/17) Medications: see eMAR Patient NPO?: Yes Past Medical History Cardiovascular: Denies: HTN, CAD, NM, valve dz, arrhythmia, other Pulmonary: Reports: COPD; Denies: asthma, JENA, other Gastrointestinal/Genitourinary: Reports: GERD; Denies: CRI, ESRD, other Neurologic/Psychiatric: Reports: dementia; Denies: CVA, depression/anxiety, TIA, other Endocrine: Reports: hypothyroidism; Denies: DM, steroids, other HEENT: Denies: cataract (L), cataract (R), glaucoma, BAD RIVER BAND (L), BAD RIVER BAND (R), other Hematology/Immune: Reports: anemia - mild, other - R mandibular CA s/p resection in stable remission; Denies: DVT, bleeding disorder Musculoskeletal/Integumentary: Reports: OA; Denies: RA, DJD, DDD, edema, other Other: other - malnourished PMH Narrative: as above PSxH Narrative: R neck Sx. Anesthesia Pre-op Phys. Exam Physician Exam Last Vital Signs Date Time Temp Pulse Resp B/P (MAP) Pulse Ox O2 Delivery O2 Flow Rate FiO2 10/22/20 08:00 98.0 67 18 136/95 (109) 95 10/21/20 21:00 Room Air Constitutional: NAD Neurologic: other - unable to obtaine Cardiovascular: RRR Respiratory: other - some wheezing bilaterally Gastrointestinal: S/NT/ND Airway Exam Mallampati Score: Class III MO: limited Neck: surgical scar on the R side. open wound along R side of the mandible ROM: limited Teeth: missing Dentures: no upper, no lower Anesthesia Pre-op A/P Labs Hematology Test 10/21/20 19:28 10/22/20 05:10 White Blood Count 14.8 K/UL (4.8-10.8) H 10.7 K/UL (4.8-10.8) Red Blood Count 5.65 M/UL (4.20-5.40) H 5.03 M/UL (4.20-5.40) Hemoglobin 15.6 G/DL (12.0-16.0) 14.0 G/DL (12.0-16.0) Hematocrit 47.9 % (37.0-47.0) H 42.6 % (37.0-47.0) Mean Corpuscular Volume 85 FL (80-99) 85 FL (80-99) Mean Corpuscular Hemoglobin 27.7 PG (27.0-31.0) 27.8 PG (27.0-31.0) Mean Corpuscular Hemoglobin Concent 32.6 G/DL (32.0-36.0) 32.8 G/DL (32.0-36.0) Red Cell Distribution Width 15.0 % (11.6-14.8) H 14.2 % (11.6-14.8) Platelet Count 121 K/UL (150-450) L 103 K/UL (150-450) L Mean Platelet Volume 10.6 FL (6.5-10.1) H 11.3 FL (6.5-10.1) H Neutrophils (%) (Auto) % (45.0-75.0) 72.0 % (45.0-75.0) Lymphocytes (%) (Auto) % (20.0-45.0) 17.9 % (20.0-45.0) L Monocytes (%) (Auto) % (1.0-10.0) 9.4 % (1.0-10.0) Eosinophils (%) (Auto) % (0.0-3.0) 0.1 % (0.0-3.0) Basophils (%) (Auto) % (0.0-2.0) 0.6 % (0.0-2.0) Differential Total Cells Counted 100 Neutrophils % (Manual) 89 % (45-75) H Lymphocytes % (Manual) 7 % (20-45) L Monocytes % (Manual) 4 % (1-10) Eosinophils % (Manual) 0 % (0-3) Basophils % (Manual) 0 % (0-2) Band Neutrophils 0 % (0-8) Platelet Estimate Decreased L Platelet Morphology Normal Anisocytosis 1+ Coagulation Test 10/21/20 19:28 Prothrombin Time 11.9 SEC (9.30-11.50) H Prothromb Time International Ratio 1.1 (0.9-1.1) Activated Partial Thromboplast Time 29 SEC (23-33) Chemistry Test 10/21/20 19:28 Sodium Level 140 MMOL/L (136-145) Potassium Level 3.6 MMOL/L (3.5-5.1) Chloride Level 105 MMOL/L (98-107) Carbon Dioxide Level 23 MMOL/L (21-32) Anion Gap 12 mmol/L (5-15) Blood Urea Nitrogen 20 mg/dL (7-18) H Creatinine 1.2 MG/DL (0.55-1.30) Estimat Glomerular Filtration Rate 43.0 mL/min (>60) Glucose Level 110 MG/DL (74-106) H Calcium Level 10.8 MG/DL (8.5-10.1) H Total Bilirubin 1.3 MG/DL (0.2-1.0) H Direct Bilirubin 0.3 MG/DL (0.0-0.3) Aspartate Amino Transf (AST/SGOT) 25 U/L (15-37) Alanine Aminotransferase (ALT/SGPT) 22 U/L (12-78) Alkaline Phosphatase 73 U/L (46-116) Total Protein 8.9 G/DL (6.4-8.2) H Albumin 3.8 G/DL (3.4-5.0) Globulin 5.1 g/dL Albumin/Globulin Ratio 0.7 (1.0-2.7) L Thyroid Stimulating Hormone (TSH) 0.082 uiU/mL (0.358-3.740) Risk Assessment & Plan Assessment: ASA 3 Plan: SAB vs GA Status Change Before Surgery: No Pre-Antibiotics Drug: as scheduled Given Within 1 Hr of Incision: Yes Estevan Enlgish MD Oct 22, 2020 10:40
[2020-10-22] MEDS ORDERED: Kenalog-40 1ml Vial ONE (12:35)
[2020-10-22] MEDS ORDERED: Ketorolac 30mg Inj ONE (12:35)
[2020-10-22] MEDS ORDERED: Bacitracin 50000 Units Vial ONE (12:36)
[2020-10-22] MEDS ORDERED: Duramorph PF 5mg/10ml amp ONE (12:36)
[2020-10-22] MEDS ORDERED: Bupivacaine w/Epi 0.25% 50ml vial INJ ONE (12:36)
[2020-10-22] MEDS ORDERED: NeoSporin Gu Irrig 1ml Amp IRRIG ONE (12:36)
--- NOTE | 2020-10-22 13:19 | Diagnostic Imaging Report ---
Indication: Trauma, pain Technique: One view of the pelvis, 2 views of the left hip Comparison: 10/08/2013 Findings: There is a fracture of the left femoral neck. This is displaced superiorly by about one half bone width and slightly angulated. No evidence of acute pelvic fracture. The joint spaces are preserved. The bones are osteoporotic. A Alcantar catheter is noted Impression: Positive for left femoral neck fracture
[2020-10-22] MEDS ORDERED: EPINEPHrine 1mg/1ml Amp ONE (13:46)
[2020-10-22] MEDS ORDERED: Bupivacaine 0.5% Inj 30 ml vial INJ ONE (13:46)
[2020-10-22] MEDS ORDERED: cloNIDine 1000mcg/10ml inj ONE (13:46)
[2020-10-22] MEDS ORDERED: HYDROcodone/Acetamin 7.5/325 tab ORAL PRN ×2 (14:15→16:15)
[2020-10-22] MEDS ORDERED: LORazepam Inj 2mg/ml 1ml IV PRN (14:15)
[2020-10-22] MEDS ORDERED: Midazolam 2mg/2ml Inj IVP PRN (14:15)
[2020-10-22] MEDS ORDERED: LR 1000ml 1,000 ML IVLG SCH (14:15)
[2020-10-22] MEDS ORDERED: oxyCODONE HCL/Acetaminophen 5/325mg ORAL PRN (14:15)
[2020-10-22] MEDS ORDERED: Hydromorphone 0.5mg/0.5ml inj IVP PRN (14:15)
[2020-10-22] MEDS ORDERED: Labetalol 5mg/ml 20ml vial IV PRN (14:15)
[2020-10-22] MEDS ORDERED: HYDROcodone/Acetamin 5/325 tab ORAL PRN ×2 (14:15→16:15)
[2020-10-22] MEDS ORDERED: Metoclopramide 10mg/2ml Inj IVP PRN ×2 (14:15→16:15)
[2020-10-22] MEDS ORDERED: Meperidine 25mg/1ml Inj (FOR RIGORS ONLY) IV PRN (14:15)
[2020-10-22] MEDS ORDERED: Atropine Sulfate 0.4mg/ml inj IVP PRN (14:15)
[2020-10-22] MEDS ORDERED: fentaNYL 100 mcg/2 mL IV PRN (14:15)
[2020-10-22] MEDS ORDERED: DiphenhydrAMINE 50mg/ml Inj IVP PRN (14:15)
[2020-10-22] MEDS ORDERED: LR 1000ml ONE (16:00)
[2020-10-22] MEDS ORDERED: Lidocaine 1% MPF 10mg/ml 5ml ONE (16:00)
[2020-10-22] MEDS ORDERED: Sterile Water Irrig 1000ml IRRIG ONE (16:00)
--- NOTE | 2020-10-22 16:07 | Pre-Procedure Note/Attestation ---
Pre-Procedure Note/Attestation Complete Prior to Procedure Planned Procedure: left Procedure Narrative: hip hemiarthroplasty Indications for Procedure Pre-Operative Diagnosis: left femoral neck fracture Attestation I attest that I discussed the nature of the procedure; its benefits; risks and complications; and alternatives (and the risks and benefits of such alternatives), prior to the procedure, with the patient (or the patient's legal real estate representative). I attest that, if there was a reasonable possibility of needing a blood transfusion, the patient (or the patient's legal real estate representative) was given the [facility] standardized written summary, pursuant to the Soham Angela Blood Safety Act ([place] Health and Safety Code # 1645, as amended). I attest that I re-evaluated the patient just prior to the surgery and that there has been no change in the patient's H&P, except as documented below: Doug Del Angel MD Oct 22, 2020 16:07
--- NOTE | 2020-10-22 16:08 | Operative Note - PDOC ---
Operative Note Operative Note Pre-op Diagnosis: left femoral neck fracture Procedure: see op report Post-op Diagnosis: same as pre-op plus Operative Findings: consistent w/pre-op dx studies Anesthesia: regional Specimen: none Complications: none Condition: stable Estimated Blood Loss: none Implant(s) used?: Yes Doug Del Angel MD Oct 22, 2020 16:08
[2020-10-22] MEDS ORDERED: Milk of Magnesia 30ml Ud ORAL PRN (16:15)
--- NOTE | 2020-10-22 16:30 | NUR ---
CASE MANAGEMENT:REVIEW SI: LEFT FEMORAL NECK FRACTURE 98.0 67 18 136/95 95% ON RA WBC+14.8 IS: TO SURGERY FOR: LEFT HIP HEMIARTHROPLASTY IV ANCEF Q8HRS : TO MED/SURG POST OP
--- NOTE | 2020-10-22 16:32 | Immediate Post-Op Evaluation ---
Immediate Post-Op Evalulation Immediate Post-Op Evalulation Procedure: L Hip Hemiarthropalsty Date of Evaluation: Oct 22, 2020 Time of Evaluation: 17:33 IV Fluids: 700 LR Blood Products: 0 Estimated Blood Loss: 50 Urinary Output: 0 Blood Pressure Systolic: 121 Blood Pressure Diastolic: 63 Pulse Rate: 66 Respiratory Rate: 16 O2 Sat by Pulse Oximetry: 100 Temperature (Fahrenheit): 98.1 Pain Score (1-10): 1 Nausea: No Vomiting: No Complications 0 Patient Status: awake, reacts, patent, none Hydration Status: adequate Dru Gram Ancef IV Given Within 1 Hr of Incision: Yes Time Given: 16:11 Fahad Segura MD Oct 22, 2020 16:32
--- NOTE | 2020-10-22 16:32 | 48 Hour Post Anesthesia Eval ---
Post Anesthesia Evaluation Procedure: L Hip Hemiarthropalsty Date of Evaluation: Oct 22, 2020 Time of Evaluation: 19:43 Blood Pressure Systolic: 125 0: 67 Pulse Rate: 64 Respiratory Rate: 18 Temperature (Fahrenheit): 98.1 O2 Sat by Pulse Oximetry: 100 Airway: patent Nausea: No Vomiting: No Pain Intensity: 1 Hydration Status: adequate Cardiopulmonary Status: Stable Mental Status/LOC: patient returned to baseline Follow-up Care/Observations: 0 Post-Anesthesia Complications: 0 Follow-up care needed: N/A Fahad Segura MD Oct 22, 2020 16:32
[2020-10-22] MEDS ORDERED: Phenylephrine 10mg/ml Vial ONE (16:37)
--- NOTE | 2020-10-22 16:43 | NUR ---
BAG LOADER MACHINE OPERATOR NOTE SW spoke w/ pt's niece, Starla Woody [phone], confirmed that pt has a caregiver who provides 24 hours and has been providing full assistance. The fall incident occurred when the caregiver attempted to assist in the bathroom but pt was not fully oriented and did not follow commands. Starla will discuss the DC placement option w/ and she would consider short term rehab until pt recovers from surgery.
[2020-10-22] MEDS ORDERED: NS Irrig 2000ml IRRIG ONE (16:47)
[2020-10-22] MEDS ORDERED: D5 1/2NS w/KCl 20mEq 1,000 ML IV SCH (17:30)
[2020-10-22] MEDS: Docusate 100mg cap ORAL SCH (18:00)
[2020-10-22] MEDS ORDERED: VITAMIN D325 MC1 PO (18:18)
[2020-10-22] MEDS ORDERED: SYNTHROID100 MCG ORAL (18:18)
--- NOTE | 2020-10-22 20:00 | NUR ---
NURSE HAND-OFF: Important Events on Shift: Pt had left hip ORIF; arrived to unit 30 minutes before change of shift in stable condition. Patient Status: Stable Diet: Regular (mechanical chopped) Pending Orders: None Pending Results/Labs: None Pending MD notification: None Latest Vital Signs: Temperature 97.2 , Pulse 73 , B/P 104 /63 , Respiratory Rate 18 , O2 SAT 96 , Nasal Cannula, O2 Flow Rate 3 . Vital Sign Comment: Stable Latest Garces Fall Score: 95 Fall Risk: High Risk Safety Measures: Call light Within Reach, Bed Alarm Zone 1, Side Rails Side Rails x2, Bed position Low and Locked. Fall Precautions: Yellow Socks Yellow Gown Door Sign Patient Fall Education Report given to FRANCISCA Coats.
--- NOTE | 2020-10-22 20:33 | NUR ---
NURSE NOTES: Received patient awake, verbal, confused, follows simple command, no SOB noted.
[2020-10-22] MEDS: Aspirin Baby 81mg ORAL SCH ×2 (21:00→21:51)
--- NOTE | 2020-10-22 21:29 | Consultation ---
DATE OF CONSULTATION: 10/21/2020 ORTHOPEDIC CONSULTATION CHIEF COMPLAINT: Left hip pain. HISTORY OF PRESENT ILLNESS: The patient is an 84-year-old female, who resides in a long-term, who sustained a fall. She has significant pain and discomfort. A CT scan from outside facility showed a femoral neck fracture. She was subsequently brought to [facility]. Orthopedic consult was obtained for further care and recommendation. PAST MEDICAL HISTORY: Reviewed per intake chart. PAST SURGICAL HISTORY: Reviewed per intake chart. MEDICATIONS: Reviewed per intake chart. PHYSICAL EXAMINATION: GENERAL: The patient is resting comfortably in exam bed. She is alert and oriented. She is in moderate pain. EXTREMITIES: She has shortening of left leg. Dorsalis pedis +2. DIAGNOSTIC DATA: Imaging studies showed displaced femoral neck fracture. ASSESSMENT: Left displaced femoral neck fracture. PLAN: She is a minimal ambulator, she is ambulating at the long-term. I discussed the case with power of workers compensation attorney Dr. Rodríguez. At this point we will optimize her for anticipation of surgery tomorrow, left hip hemiarthroplasty. Risks, limitations, expectations, and complications of procedure were discussed in detail. All questions were addressed. We will proceed with surgery if she is medically optimized tomorrow. She will be NPO in anticipation of surgery. We will go ahead and coordinate contacting the various implant companies and bring the implants over in preparation of the surgery. She should be maintained on bedrest with IV fluids after midnight and SCDs for DVT prophylaxis. Doug Del Angel M.D. DR: Isra JOB#: [id number] CC:
[2020-10-23] MEDS: NS w/KCl 20mEq 1000ml 1,000 ML IV SCH ×3 (00:05→15:59)
[2020-10-23] MEDS: ceFAZolin 2gm/50ml Premix 50 ML IV SCH ×2 (00:20→09:45)
--- NOTE | 2020-10-23 02:26 | Cardiology Progress Note ---
Subjective DATE OF SERVICE: Oct 22, 2020 No c/o pain unless being moved Objective Last 24 Hour Vital Signs Date Time Temp Pulse Resp B/P (MAP) Pulse Ox O2 Delivery O2 Flow Rate FiO2 10/22/20 23:35 98.6 91 20 148/68 (94) 94 10/22/20 21:26 Room Air 10/22/20 20:37 98.3 88 20 142/64 (90) 93 10/22/20 18:30 97.2 73 18 104/63 (77) 96 10/22/20 18:15 97.9 80 19 109/58 100 Nasal Cannula 3 10/22/20 18:00 76 14 123/51 100 Nasal Cannula 3 10/22/20 17:48 93 15 115/55 100 Simple Mask 6 10/22/20 17:38 60 15 96/46 100 Simple Mask 6 10/22/20 17:28 70 11 107/49 100 Simple Mask 6 10/22/20 17:24 64 18 100 10/22/20 17:23 84 22 140/56 100 Simple Mask 6 10/22/20 17:23 66 16 100 10/22/20 17:18 98.0 81 15 81/48 100 Simple Mask 6 10/22/20 12:00 98.1 67 18 130/85 (100) 96 10/22/20 09:00 Room Air 10/22/20 08:00 98.0 67 18 136/95 (109) 95 10/22/20 04:00 97.2 84 22 157/92 (113) 100 HEENT: normal ENT inspection LUNGS: lungs clear bilaterally CARDIAC: normal rate, regular rhythm, normal S1 and S2 ABDOMEN: normal bowel sounds, non tender, soft EXTREMITIES: No edema, other - left hip internally rotated. Laboratory Tests Test 10/22/20 05:10 10/22/20 05:56 White Blood Count 10.7 K/UL (4.8-10.8) Red Blood Count 5.03 M/UL (4.20-5.40) Hemoglobin 14.0 G/DL (12.0-16.0) Hematocrit 42.6 % (37.0-47.0) Mean Corpuscular Volume 85 FL (80-99) Mean Corpuscular Hemoglobin 27.8 PG (27.0-31.0) Mean Corpuscular Hemoglobin Concent 32.8 G/DL (32.0-36.0) Red Cell Distribution Width 14.2 % (11.6-14.8) Platelet Count 103 K/UL (150-450) L Mean Platelet Volume 11.3 FL (6.5-10.1) H Neutrophils (%) (Auto) 72.0 % (45.0-75.0) Lymphocytes (%) (Auto) 17.9 % (20.0-45.0) L Monocytes (%) (Auto) 9.4 % (1.0-10.0) Eosinophils (%) (Auto) 0.1 % (0.0-3.0) Basophils (%) (Auto) 0.6 % (0.0-2.0) Urine Color Yellow Urine Appearance Slightly cloudy Urine pH 5 (4.5-8.0) Urine Specific [place] 1.020 (1.005-1.035) Urine Protein 2+ (NEGATIVE) H Urine Glucose (UA) Negative (NEGATIVE) Urine Ketones Negative (NEGATIVE) Urine Blood 2+ (NEGATIVE) H Urine Nitrite Negative (NEGATIVE) Urine Bilirubin Negative (NEGATIVE) Urine Urobilinogen Normal MG/DL (0.0-1.0) Urine Leukocyte Esterase 1+ (NEGATIVE) H Urine RBC 0-2 /HPF (0 - 2) Urine WBC 5-10 /HPF (0 - 2) H Urine Squamous Epithelial Cells Many /LPF (NONE/OCC) H Urine Bacteria Many /HPF (NONE) H Microbiology Date/Time Source Procedure Growth Status 10/21/20 22:00 Nasopharynx SARS-CoV-2 Antigen (Rapid)(MAGDA) - Final Complete Assessment/Plan Assessment/Plan Mechanical fall Left hip fracture Hypothyroidism Dementia Dehydration/hypovolemia Hx head and neck CA with right gibula transplant Hx pernicious anemia and B12 def Vitamin D def IVF Pain control DVT prophylaxis Orthopedic surgery today ADVANCE CARE PLANNING: DNR based on patient's previously expressed wishes. Adan Rodríguez MD Oct 23, 2020 02:26
[2020-10-23 04:00] VITALS: BP 151/72
--- NOTE | 2020-10-23 06:07 | NUR ---
NURSE HAND-OFF: Important Events on Shift:[]S/P Left hip hemiarthroplasty Patient Status: []stable Diet: []regular Pending Orders: [] Pending Results/Labs:[] Pending MD notification:[] Latest Vital Signs: Temperature 98.4 , Pulse 90 , B/P 151 /72 , Respiratory Rate 20 , O2 SAT 94 , Nasal Cannula, O2 Flow Rate 3 . Vital Sign Comment: [] Latest Garces Fall Score: 95 Fall Risk: High Risk Safety Measures: Call light Within Reach, Bed Alarm Zone 1, Side Rails Side Rails x2, Bed position Low and Locked. Fall Precautions: Yellow Socks Yellow Gown Door Sign Patient Fall Education Report given to [].
[2020-10-23 08:00] VITALS: BP 155/85
[2020-10-23] MEDS: Aspirin Baby 81mg ORAL SCH (09:00)
--- NOTE | 2020-10-23 09:00 | NUR ---
PT EVALUATION NOTE Patient seen for initial evaluation and treatment initiated. Patient presents with L hip pain and impaired functional mobility s/o L hip hemiarthroplasty for L hip fx. Patient is confused, has difficulty following commands, is agitated at times. Patient requires max/dependent assist of 2 to come to sitting at the EOB and min/mod assist to maintain sitting at the EOB. Patient will benefit from skilled inpatient PT intervention to improve functional mobility, safety and activity tolerance. Recommend discharge to SNF for continued rehab once medically cleared by MD. Recommend FWW for transfers and ambulation when able. Addendum: 10/23/20 at 1157 by JEREMY ABAD PT Amended: Links added.
[2020-10-23 09:26] LABS: HEMATOCRIT 44.8 % (37.0-47.0); HEMOGLOBIN 14.8 G/DL (12.0-16.0); MEAN CORPUSCULAR VOLUME 85 FL (80-99); PLATELET COUNT 156 K/UL (150-450); RED BLOOD COUNT 5.28 M/UL (4.20-5.40); RED CELL DISTRIBUTION WIDTH 14.1 % (11.6-14.8); WHITE BLOOD COUNT 13.6 K/UL (4.8-10.8)
[2020-10-23] MEDS: Docusate 100mg cap ORAL SCH (09:45)
[2020-10-23] MEDS: celeBREX 200mg Cap **SURGERY PATIENTS ONLY ORAL SCH ×2 (09:47→18:55)
[2020-10-23] MEDS: Lyrica 50mg cap ORAL SCH ×2 (09:47→20:37)
[2020-10-23 09:52] LABS: ALBUMIN/GLOBULIN RATIO 0.6 (1.0-2.7); BILIRUBIN,TOTAL 0.5 MG/DL (0.2-1.0); CALCIUM 9.5 MG/DL (8.5-10.1); CREATININE 1.1 MG/DL (0.55-1.30); POTASSIUM 4.7 MMOL/L (3.5-5.1)
[2020-10-23 12:00] VITALS: BP 153/72
--- NOTE | 2020-10-23 12:00 | NUR ---
NURSE NOTES: Removed leyva catheter 16Fr, patient tolerated procedure well, noted 55mL clear yellow urine output.
[2020-10-23] MEDS: Enoxaparin 40mg Inj SUBQ SCH (12:20)
[2020-10-23] MEDS: Cefepime HCl 1 GM in D5W 55 ML IVPB SCH (12:21)
--- NOTE | 2020-10-23 13:54 | Diagnostic Imaging Report ---
Indication: Postoperative, status post left hip hemiarthroplasty for pain Technique: One view of the pelvis Comparison: 9 hours earlier Findings: Interim placement of left hip hemiarthroplasty prosthesis. Hardware appears well aligned. A small amount of retained air from the surgical exposure is seen in the soft tissues There is a Alcantar catheter present. No pelvic fracture Alcantar catheter is present Impression: Status post left hip hemiarthroplasty, no unusual features
--- NOTE | 2020-10-23 14:50 | NUR ---
CASE MANAGEMENT:REVIEW 10/23/20 SI: POD #2 S/P LEFT HIP HEMIARTHROPLASTY 98.4 90 20 151/72 94% ON RA WBC+13.6 BUN+20 IS: IV CEFEPIME Q24 IVF+KCL@125/HR ASA PO QD LOVENOX SQ QD PROTONIX PO QD LYRICA PO Q12 IV MORPHINE Q4HR PRN : MED/SURG STATUS PLAN: REFER TO [facility] RODRIGUEZ
--- NOTE | 2020-10-23 14:55 | NUR ---
*-*DISCHARGE PLANNED*-* PATIENT HAS BEEN ACCEPTED TO: [facility] P: [phone] ROOM# 4.A ~~~~~~~~~~~~~~~~~~~~~~~~~~~~~PENDING DISCHARGE~~~~~~~~~~~~~~~~~~~~~~~~~~~~~~~~
--- NOTE | 2020-10-23 15:50 | NUR ---
NURSE NOTES: Bladder scanner showed 57 mL of urine in the bladder, no pain or distention noted, no pain noted upon palpation.
[2020-10-23] MEDS: Morphine Sulfate 2mg/ml Inj(IV/IM USE ONLY) IVP PRN ×2 (15:59→19:21)
[2020-10-23 16:00] VITALS: BP 140/73
--- NOTE | 2020-10-23 17:42 | Cardiology Progress Note ---
Subjective DATE OF SERVICE: Oct 23, 2020 S/P uncomplicated left hemiarthroplasty No c/o pain Objective Last 24 Hour Vital Signs Date Time Temp Pulse Resp B/P (MAP) Pulse Ox O2 Delivery O2 Flow Rate FiO2 10/23/20 16:29 98.3 10/23/20 12:00 98.3 92 18 153/72 (99) 96 10/23/20 08:00 98.1 95 19 155/85 (108) 96 10/23/20 04:00 98.4 90 20 151/72 (98) 94 10/22/20 23:35 98.6 91 20 148/68 (94) 94 10/22/20 21:26 Room Air 10/22/20 20:37 98.3 88 20 142/64 (90) 93 10/22/20 18:30 97.2 73 18 104/63 (77) 96 10/22/20 18:15 97.9 80 19 109/58 100 Nasal Cannula 3 10/22/20 18:00 76 14 123/51 100 Nasal Cannula 3 10/22/20 17:48 93 15 115/55 100 Simple Mask 6 HEENT: normal ENT inspection LUNGS: lungs clear bilaterally CARDIAC: normal rate, regular rhythm, normal S1 and S2 ABDOMEN: normal bowel sounds, non tender, soft EXTREMITIES: No edema Laboratory Tests Test 10/23/20 08:45 White Blood Count 13.6 K/UL (4.8-10.8) H Red Blood Count 5.28 M/UL (4.20-5.40) Hemoglobin 14.8 G/DL (12.0-16.0) Hematocrit 44.8 % (37.0-47.0) Mean Corpuscular Volume 85 FL (80-99) Mean Corpuscular Hemoglobin 28.0 PG (27.0-31.0) Mean Corpuscular Hemoglobin Concent 33.0 G/DL (32.0-36.0) Red Cell Distribution Width 14.1 % (11.6-14.8) Platelet Count 156 K/UL (150-450) # Mean Platelet Volume 10.6 FL (6.5-10.1) H Neutrophils (%) (Auto) % (45.0-75.0) Lymphocytes (%) (Auto) % (20.0-45.0) Monocytes (%) (Auto) % (1.0-10.0) Eosinophils (%) (Auto) % (0.0-3.0) Basophils (%) (Auto) % (0.0-2.0) Differential Total Cells Counted 100 Neutrophils % (Manual) 97 % (45-75) H Lymphocytes % (Manual) 2 % (20-45) L Monocytes % (Manual) 1 % (1-10) Eosinophils % (Manual) 0 % (0-3) Basophils % (Manual) 0 % (0-2) Band Neutrophils 0 % (0-8) Platelet Estimate Adequate Platelet Morphology Normal Anisocytosis 1+ Sodium Level 139 MMOL/L (136-145) Potassium Level 4.7 MMOL/L (3.5-5.1) Chloride Level 107 MMOL/L (98-107) Carbon Dioxide Level 25 MMOL/L (21-32) Anion Gap 7 mmol/L (5-15) Blood Urea Nitrogen 20 mg/dL (7-18) H Creatinine 1.1 MG/DL (0.55-1.30) Estimat Glomerular Filtration Rate 47.4 mL/min (>60) Glucose Level 136 MG/DL (74-106) H Calcium Level 9.5 MG/DL (8.5-10.1) Magnesium Level 1.8 MG/DL (1.8-2.4) Total Bilirubin 0.5 MG/DL (0.2-1.0) Aspartate Amino Transf (AST/SGOT) 31 U/L (15-37) Alanine Aminotransferase (ALT/SGPT) 18 U/L (12-78) Alkaline Phosphatase 66 U/L (46-116) Total Protein 7.8 G/DL (6.4-8.2) Albumin 3.0 G/DL (3.4-5.0) L Globulin 4.8 g/dL Albumin/Globulin Ratio 0.6 (1.0-2.7) L Microbiology Date/Time Source Procedure Growth Status 10/22/20 05:56 Urine,Clean Catch Urine Culture - Preliminary Gram Negative Camacho Resulted 10/21/20 22:00 Nasopharynx SARS-CoV-2 Antigen (Rapid)(MAGDA) - Final Complete Assessment/Plan Assessment/Plan Mechanical fall Left hip fracture - s/p hemiarthroplasty Hypothyroidism Dementia Dehydration/hypovolemia corrected 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
--- NOTE | 2020-10-23 19:10 | NUR ---
NURSE HAND-OFF: Important Events on Shift: Adequate oral intake, no acute events, pending discharge order to [facility] Patient Status: stable condition, full code, breathing even and unlabored, alert and oriented to baseline (x1) Diet: regular mechanical soft Pending Orders: [] Pending Results/Labs:[] Pending MD notification:[] Latest Vital Signs: Temperature 98.3 , Pulse 90 , B/P 140 /73 , Respiratory Rate 20 , O2 SAT 96 , Nasal Cannula, O2 Flow Rate 3 . Vital Sign Comment: [] Latest Garces Fall Score: 95 Fall Risk: High Risk Safety Measures: Call light Within Reach, Bed Alarm Zone 1, Side Rails Side Rails x2, Bed position Low and Locked. Fall Precautions: Yellow Socks Yellow Gown Door Sign Patient Fall Education Report given to FRANCISCA Mccormack.
--- NOTE | 2020-10-23 19:49 | NUR ---
NURSE NOTES: Received patient comfortably sleeping, no SOB noted.
[2020-10-23 20:16] VITALS: BP 115/77
[2020-10-24 00:33] VITALS: BP 96/54
[2020-10-24] MEDS: NS w/KCl 20mEq 1000ml 1,000 ML IV SCH ×2 (02:07→17:36)
[2020-10-24 04:09] VITALS: BP 114/65
--- NOTE | 2020-10-24 06:16 | NUR ---
NURSE HAND-OFF: Important Events on Shift:[]Pain medication as needed Patient Status: []Stable Diet: []Regular mechanical soft Pending Orders: [] Pending Results/Labs:[] Pending MD notification:[] Latest Vital Signs: Temperature 98.0 , Pulse 67 , B/P 114 /65 , Respiratory Rate 20 , O2 SAT 96 , Nasal Cannula, O2 Flow Rate 3 . Vital Sign Comment: [] Latest Garces Fall Score: 95 Fall Risk: High Risk Safety Measures: Call light Within Reach, Bed Alarm Zone 1, Side Rails Side Rails x2, Bed position Low and Locked. Fall Precautions: Yellow Socks Yellow Gown Door Sign Patient Fall Education Report given to [].
[2020-10-24 08:00] VITALS: BP 156/88
--- NOTE | 2020-10-24 08:00 | NUR ---
NURSE NOTES: Patient awake and alert to name,otherwise confused,reorient patient.IV fluids infusing as ordered.Left hip dressing clean intact.patient eating breakfast.Bed alarm on,call light within reach.
[2020-10-24] MEDS: celeBREX 200mg Cap **SURGERY PATIENTS ONLY ORAL SCH ×2 (09:05→17:56)
[2020-10-24] MEDS: Lyrica 50mg cap ORAL SCH ×2 (09:07→22:15)
[2020-10-24] MEDS: Enoxaparin 40mg Inj SUBQ SCH (09:09)
[2020-10-24 12:00] VITALS: BP 132/80
[2020-10-24] MEDS: Cefepime HCl 1 GM in D5W 55 ML IVPB SCH (13:38)
[2020-10-24] MEDS: Aspirin Baby 81mg ORAL SCH (13:42)
[2020-10-24 16:00] VITALS: BP 167/81
--- NOTE | 2020-10-24 16:20 | General Progress Note ---
Subjective ROS Limited/Unobtainable: No Constitutional: Reports: malaise, weakness HEENT: Reports: no symptoms Cardiovascular: Reports: no symptoms Respiratory: Reports: no symptoms Gastrointestinal/Abdominal: Reports: no symptoms Genitourinary: Reports: no symptoms Neurologic/Psychiatric: Reports: pre-existing deficit Endocrine: Reports: no symptoms Hematologic/Lymphatic: Reports: no symptoms Allergies: Coded Allergies: NO KNOWN ALLERGIES (Verified Allergy, Unknown, 03/14/17) NO KNOWN DRUG ALLERGIES (Verified Allergy, Unknown, 03/14/17) UNABLE TO ASSESS (Unverified , 05/07/17) All Systems: reviewed and negative except above Subjective events noted. s/p orif hip. no complaints. denies pain. no fever or chills. no sob. Objective Last 24 Hour Vital Signs Date Time Temp Pulse Resp B/P (MAP) Pulse Ox O2 Delivery O2 Flow Rate FiO2 10/24/20 12:00 97.5 93 19 132/80 (97) 96 10/24/20 09:00 Room Air 10/24/20 08:00 96.9 80 19 156/88 (110) 96 10/24/20 04:09 98.0 67 20 114/65 (81) 96 10/24/20 00:33 98.2 59 18 96/54 (68) 96 10/23/20 20:19 Room Air 10/23/20 20:16 97.9 67 20 115/77 (90) 99 10/23/20 16:29 98.3 Intake and Output 10/23/20 10/24/20 19:00 07:00 Intake Total 725 ml 1175 ml Balance 725 ml 1175 ml Intake Oral 600 ml IV Total 125 ml 1175 ml # Voids 2 Height (Feet): 5 Height (Inches): 3.00 Weight (Pounds): 105 General Appearance: WD/WN, alert, confused EENT: normal ENT inspection Neck: normal alignment Cardiovascular: normal rate, regular rhythm Respiratory/Chest: chest wall non-tender, lungs clear, normal breath sounds, no respiratory distress Abdomen: normal bowel sounds, non tender, soft, no organomegaly Edema: no edema noted Arm (L), no edema noted Arm (R) Neurologic: alert, responsive, disoriented Skin: normal pigmentation Assessment/Plan Problem List: (1) Hip fracture, left ICD Codes: S72.002A - Fracture of unspecified part of neck of left femur, initi al encounter for closed fracture SNOMED: 773703838, [id number] Status: stable, progressing Assessment/Plan: a/ left hip fx s/p orif hypothyroidism dementia hx head and neck ca s/p surgery toxic met encephalopathy p/ restraints for safety pain rx pt/ot dvt/stress ulcer prophylaxis iv abx for ecoli uti snf placement Urbano Dong MD Oct 24, 2020 16:20
--- NOTE | 2020-10-24 16:51 | Cardiology Progress Note ---
Subjective DATE OF SERVICE: Oct 24, 2020 S/P uncomplicated left hemiarthroplasty No c/o pain Appetite fair; needs to be fed. Urine C&S with EColi sens to all abx Objective Last 24 Hour Vital Signs Date Time Temp Pulse Resp B/P (MAP) Pulse Ox O2 Delivery O2 Flow Rate FiO2 10/24/20 12:00 97.5 93 19 132/80 (97) 96 10/24/20 09:00 Room Air 10/24/20 08:00 96.9 80 19 156/88 (110) 96 10/24/20 04:09 98.0 67 20 114/65 (81) 96 10/24/20 00:33 98.2 59 18 96/54 (68) 96 10/23/20 20:19 Room Air 10/23/20 20:16 97.9 67 20 115/77 (90) 99 HEENT: normal ENT inspection LUNGS: lungs clear bilaterally CARDIAC: normal rate, regular rhythm, normal S1 and S2 ABDOMEN: normal bowel sounds, non tender, soft EXTREMITIES: No edema Microbiology Date/Time Source Procedure Growth Status 10/22/20 05:56 Urine,Clean Catch Urine Culture - Preliminary Escherichia Coli Resulted 10/21/20 22:00 Nasopharynx SARS-CoV-2 Antigen (Rapid)(MAGDA) - Final Complete Assessment/Plan Assessment/Plan Mechanical fall Left hip fracture - s/p hemiarthroplasty Hypothyroidism Dementia Dehydration/hypovolemia corrected 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
[2020-10-24] MEDS: Lactobacillus-GG tablet ORAL SCH (17:55)
--- NOTE | 2020-10-24 19:02 | NUR ---
NURSE NOTES: Turned and position.IV fluids continue to infuse as ordered.In continent of urine.skin care given.Bed alarm on,call light within reach.
--- NOTE | 2020-10-24 19:20 | NUR ---
NURSE HAND-OFF: Winsome RN Important Events on Shift:[] Patient Status: []some confusion,but follows commands Diet: Regular mechcanical soft.] Pending Orders: [] Pending Results/Labs:[] Pending MD notification:[] Latest Vital Signs: Temperature 97.7 , Pulse 90 , B/P 167 /81 , Respiratory Rate 18 , O2 SAT 95 , Nasal Cannula, O2 Flow Rate 3 . Vital Sign Comment: [] Latest Garces Fall Score: 95 Fall Risk: High Risk Safety Measures: Call light Within Reach, Bed Alarm Zone 1, Side Rails Side Rails x2, Bed position Low and Locked. Fall Precautions: Yellow Socks Yellow Gown Door Sign yes Patient Fall Education Report given to [].
[2020-10-24 20:00] VITALS: BP 157/96
--- NOTE | 2020-10-24 21:00 | NUR ---
NURSE NOTES: Pt is in bed,awake but confused.No acute distress noted. Pt does not complain of pain. BP 159/97; message left for Dr. Rodríguez regarding elevated BP. Awaiting call back. Ns with 20mEq KCl running at 75ml/hr. Pt is on room air. Left hip surgical dressing was removed by the patient; dressing reapplied. Instructed patient not to remove the dressing. Surgical site, dry, intact and approximated. Pt will be repositioned frequently. Pt was given food and hydration. Fall precaution in place. Bed alarm on, bed locked low in position, side rails up and call light within reach. Pt will be monitored.
[2020-10-24] MEDS: ceFAZolin sod 1 GM in D5W 55 ML IVPB SCH (22:18)
[2020-10-25] VITALS: BP 159/97
[2020-10-25 04:00] VITALS: BP 156/90
[2020-10-25] MEDS: ceFAZolin sod 1 GM in D5W 55 ML IVPB SCH ×3 (06:05→20:15)
[2020-10-25] MEDS: NS w/KCl 20mEq 1000ml 1,000 ML IV SCH ×2 (06:05→18:48)
--- NOTE | 2020-10-25 07:25 | NUR ---
NURSE HAND-OFF: Important Events on Shift:[] Patient Status: [Stable] Diet: [Reg] Pending Orders: [] Pending Results/Labs:[] Pending MD notification:[] Latest Vital Signs: Temperature 97.3 , Pulse 89 , B/P 156 /90 , Respiratory Rate 18 , O2 SAT 96 , Nasal Cannula, O2 Flow Rate 3 . Vital Sign Comment: [] Latest Garces Fall Score: 95 Fall Risk: High Risk Safety Measures: Call light Within Reach, Bed Alarm Zone 1, Side Rails Side Rails x2, Bed position Low and Locked. Fall Precautions: Yellow Socks Yellow Gown Door Sign Patient Fall Education Report given to [FRANCISCA Parra. Informed that patient is Fall Risk.].
[2020-10-25 08:00] VITALS: BP 152/82
--- NOTE | 2020-10-25 08:00 | NUR ---
NURSE NOTES: Received patient in bed, awake and alert to name, otherwise confused. reorient patient.RFA 24G PIV access in place, IVF running. Left hip dressing clean and intact. Bed alarm on, call light within easy reach, side rails up x3. Will continue to monitor patient and follow up with the plan of care.
[2020-10-25] MEDS: celeBREX 200mg Cap **SURGERY PATIENTS ONLY ORAL SCH ×2 (09:34→18:20)
[2020-10-25] MEDS: Aspirin Baby 81mg ORAL SCH (09:35)
[2020-10-25] MEDS: Lactobacillus-GG tablet ORAL SCH ×2 (09:35→18:19)
[2020-10-25] MEDS: Lyrica 50mg cap ORAL SCH ×2 (09:36→20:15)
[2020-10-25] MEDS: Enoxaparin 40mg Inj SUBQ SCH (09:37)
[2020-10-25] MEDS: Morphine Sulfate 2mg/ml Inj(IV/IM USE ONLY) IVP PRN (09:47)
--- NOTE | 2020-10-25 11:10 | General Progress Note ---
Subjective ROS Limited/Unobtainable: Yes Constitutional: Reports: malaise, weakness HEENT: Reports: no symptoms Cardiovascular: Reports: no symptoms Respiratory: Reports: no symptoms Gastrointestinal/Abdominal: Reports: no symptoms Genitourinary: Reports: no symptoms Neurologic/Psychiatric: Reports: no symptoms Endocrine: Reports: no symptoms Hematologic/Lymphatic: Reports: no symptoms Allergies: Coded Allergies: NO KNOWN ALLERGIES (Verified Allergy, Unknown, 03/14/17) NO KNOWN DRUG ALLERGIES (Verified Allergy, Unknown, 03/14/17) UNABLE TO ASSESS (Unverified , 05/07/17) All Systems: reviewed and negative except above Subjective events noted. s/p orif hip. no complaints. denies pain. no fever or chills. no sob. currently resting. Objective Last 24 Hour Vital Signs Date Time Temp Pulse Resp B/P (MAP) Pulse Ox O2 Delivery O2 Flow Rate FiO2 10/25/20 09:00 Room Air 10/25/20 08:00 98.2 85 18 152/82 (105) 99 10/25/20 04:00 97.3 89 18 156/90 (112) 96 10/25/20 00:00 97.2 81 17 159/97 (117) 95 10/24/20 21:00 Room Air 10/24/20 20:00 97.9 90 18 157/96 (116) 95 10/24/20 16:00 97.7 90 18 167/81 (109) 95 10/24/20 12:00 97.5 93 19 132/80 (97) 96 Intake and Output 10/24/20 10/25/20 19:00 07:00 Intake Total 1487.5 ml 360 ml Balance 1487.5 ml 360 ml Intake Oral 720 ml IV Total 767.5 ml Other 360 ml # Voids 3 3 Height (Feet): 5 Height (Inches): 3.00 Weight (Pounds): 105 General Appearance: WD/WN, confused EENT: PERRL/EOMI, normal ENT inspection Neck: normal alignment, supple Cardiovascular: normal peripheral pulses, regular rhythm Respiratory/Chest: chest wall non-tender, lungs clear, normal breath sounds, no respiratory distress, no accessory muscle use Abdomen: normal bowel sounds, non tender, soft, no organomegaly, no mass Edema: no edema noted Arm (L), no edema noted Arm (R) Neurologic: alert, responsive, disoriented Skin: normal pigmentation, cyanotic Lymphatic: normal anterior cervical (L), normal anterior cervical (R) Assessment/Plan Problem List: (1) Hip fracture, left ICD Codes: S72.002A - Fracture of unspecified part of neck of left femur, initial encounter for closed fracture SNOMED: [id number], [id number] Status: stable, progressing Assessment/Plan: a/ left hip fx s/p orif hypothyroidism dementia hx head and neck ca s/p surgery toxic met encephalopathy p/ restraints for safety pain rx pt/ot dvt/stress ulcer prophylaxis iv abx for ecoli uti snf placement Urbano Dong MD Oct 25, 2020 11:10
[2020-10-25 12:00] VITALS: BP 150/85
[2020-10-25 16:00] VITALS: BP 142/85
--- NOTE | 2020-10-25 19:22 | NUR ---
NURSE HAND-OFF: Important Events on Shift:[] Patient Status: [stable] Diet: [reg] Pending Orders: [] Pending Results/Labs:[] Pending MD notification:[] Latest Vital Signs: Temperature 97.0 , Pulse 89 , B/P 142 /85 , Respiratory Rate 18 , O2 SAT 97 , Nasal Cannula, O2 Flow Rate 3 . Vital Sign Comment: [] Latest Garces Fall Score: 95 Fall Risk: High Risk Safety Measures: Call light Within Reach, Bed Alarm Zone 1, Side Rails Side Rails x2, Bed position Low and Locked. Fall Precautions: Yellow Socks Yellow Gown Door Sign Patient Fall Education Report given to [FRANCISCA Campos].
[2020-10-25 20:00] VITALS: BP 131/66
--- NOTE | 2020-10-25 20:00 | NUR ---
NURSE NOTES: Received patient asleep in bed, easily arousable, confused. IV access patent, running TKO. Patient is self turning in bed, incontinent x2, refuses purewick at this time. Bed low and locked, patient wearing non slip socks.
--- NOTE | 2020-10-25 21:55 | Cardiology Progress Note ---
Subjective DATE OF SERVICE: Oct 25, 2020 S/P uncomplicated left hemiarthroplasty BP slightly elevated at times. No c/o pain Appetite better; needs to be fed. Urine C&S with EColi sens to all abx Objective Last 24 Hour Vital Signs Date Time Temp Pulse Resp B/P (MAP) Pulse Ox O2 Delivery O2 Flow Rate FiO2 10/25/20 16:00 97.0 89 18 142/85 (104) 97 10/25/20 12:00 97.9 83 17 150/85 (106) 93 10/25/20 10:07 97.3 10/25/20 09:00 Room Air 10/25/20 08:00 98.2 85 18 152/82 (105) 99 10/25/20 04:00 97.3 89 18 156/90 (112) 96 10/25/20 00:00 97.2 81 17 159/97 (117) 95 HEENT: normal ENT inspection LUNGS: lungs clear bilaterally CARDIAC: normal rate, regular rhythm, normal S1 and S2 ABDOMEN: normal bowel sounds, non tender, soft EXTREMITIES: No edema Assessment/Plan Assessment/Plan Mechanical fall Left hip fracture - s/p hemiarthroplasty Hypothyroidism Dementia Dehydration/hypovolemia corrected 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 Pain control DVT prophylaxis Antibiotic spectrum narrowed Mobilization ADVANCE CARE PLANNING: DNR based on patient's previously expressed wishes reaffirmed with Adan Perkins MD Oct 25, 2020 21:55
[2020-10-26] VITALS: BP 178/94
[2020-10-26 04:00] VITALS: BP 153/94
[2020-10-26] MEDS: ceFAZolin sod 1 GM in D5W 55 ML IVPB SCH ×2 (05:13→14:51)
--- NOTE | 2020-10-26 07:37 | NUR ---
NURSE NOTES: Report given to FRANCISCA Parra
[2020-10-26 08:00] VITALS: BP 127/82
--- NOTE | 2020-10-26 08:03 | NUR ---
NURSE NOTES: Received patient in bed, asleep, in NAD. RFA 24G PIV access in place, IVF running. Left hip dressing clean and intact. Bed alarm on, call light within easy reach, side rails up x3. Will continue to monitor patient and follow up with the plan of care.
[2020-10-26] MEDS: Aspirin Baby 81mg ORAL SCH (09:05)
[2020-10-26] MEDS: Lyrica 50mg cap ORAL SCH (09:05)
[2020-10-26] MEDS: celeBREX 200mg Cap **SURGERY PATIENTS ONLY ORAL SCH ×2 (09:05→17:20)
[2020-10-26] MEDS: Lactobacillus-GG tablet ORAL SCH ×2 (09:06→17:20)
[2020-10-26] MEDS: Enoxaparin 40mg Inj SUBQ SCH (09:07)
--- NOTE | 2020-10-26 11:25 | NUR ---
RD ASSESSMENT & RECOMMENDATIONS SEE CARE ACTIVITY FOR COMPLETE ASSESSMENT DAILY ESTIMATED NEEDS: Needs based on Surgery 56.6kg 25-35 kcals/kg 8194-5197 total kcals 1-2 g protein/kg 57-113 g total protein 25-30 mL/kg 2446-2496 total fluid mLs NUTRITION DIAGNOSIS: Increased kcal and pro needs r/t surgery as evidenced by s/p L hip ORIF. CURRENT DIET: regular puree + ensure tid PO DIET RECOMMENDATIONS: Low Na/ texture per PLANT [employer]ATOR ADDITIONAL RECOMMENDATIONS: - recalibrate bed scale for accurate CBW - Check A1C (BG 136 110); need for niss - Continue Ensure Enlive TID w/ meals - Surgical wound care: add CARLITA BID
[2020-10-26 12:00] VITALS: BP 121/81
--- NOTE | 2020-10-26 15:48 | NUR ---
*-*DISCHARGE PLANNED*-* PATIENT HAS BEEN ACCEPTED AND WILL BE DISCHARGED BACK TO: [facility] P: [phone] FOR NURSE TO NURSE REPORT ROOM# 4.[facility] SET FOR 5PM S/W [id number]. PLACE A CALL TO PATIENTS , ASHLEY PAYAN, NO ANSWER PHONE CONSTANTLY RINGING, UNABLE TO LEAVE VOICE MESSAGE.
[2020-10-26 16:00] VITALS: BP 127/83
[2020-10-26] MEDS ORDERED: CELEBREX200 MG ORAL (16:33)
[2020-10-26] MEDS ORDERED: CULTURELLE1 EAC1 PO (16:34)
[2020-10-26] MEDS ORDERED: LYRICA50 MG ORAL (16:35)
[2020-10-26] MEDS ORDERED: ASPIRIN81 MG ORAL (16:36)
[2020-10-26] MEDS ORDERED: PROTONIX40 MG ORAL (16:38)
[2020-10-26] MEDS ORDERED: MILK OF MA400 MG/51 ORAL (16:39)
[2020-10-26] MEDS ORDERED: TYLENOL325 MG ORAL (16:39)
[2020-10-26] MEDS ORDERED: LOVENOX10 M4 SUBQ (16:42)
--- NOTE | 2020-10-26 17:45 | NUR ---
NURSE NOTES: patient has been discharged to [facility], report given to FRANCISCA Luna from the facility. Taken IV access off, no bleeding after site compression. Patient in stable condition and VS, going with [facility] BLS # [id number], report given to Richard Chapman EMT. Given Celebrex prior to transfer. Given discharge packet, after completed discharge medication reconciliation with dr. cardona and dr. Dong. Nurse tried to contact patient' spouse, unable to leave message. No complaint or S/S of pain or discomfort. patient unable to sign belongings list, leaves with all her belongings.
--- NOTE | 2020-10-27 03:29 | Discharge Summary ---
DATE OF ADMISSION: 10/21/2020 DATE OF DISCHARGE: 10/26/2020 ADMITTING DIAGNOSES: 1. Left hip fracture. 2. Hypothyroidism. 3. Dementia. 4. History of head and neck cancer. 5. UTI. DISCHARGE DIAGNOSES: 1. Left hip fracture. 2. Hypothyroidism. 3. Dementia. 4. History of head and neck cancer. 5. UTI. HOSPITAL COURSE: The patient is a pleasant 85-year-old female, who presented with mechanical fall with left hip fracture. She was also diagnosed with UTI. She underwent an uncomplicated ORIF. She received intravenous antibiotics for urinary tract infection. Postoperative course was complicated for mild confusion and felt to be due to anesthesia. On discharge, the patient was stable to be discharged to a longterm facility. She will follow up there in one to two days. DIET: Regular diet. ACTIVITIES: Ad-cem. Urbano Dong M.D. DR: MARCIA JOB#: [id number] CC:
== END 2020-10-26 18:24 | DRG 522 ==
LOC: 4E 17:30
PROC: 0SRS0JZ Replacement of Left Hip Joint, Femoral Surface with Synthetic Substitute, Open Approach (ICD-10-PCS; principal; 2020-10-22 14:00)
DX: S72.002A Fracture of unspecified part of neck of left femur, initial encounter for closed fracture (principal); N39.0 Urinary tract infection, site not specified; E03.9 Hypothyroidism, unspecified; Z85.89 Personal history of malignant neoplasm of other organs and systems; G30.9 Alzheimer's disease, unspecified; F02.80 Dementia in other diseases classified elsewhere, unspecified severity, without behavioral disturbance, psychotic disturbance, mood disturbance, and anxiety; M19.90 Unspecified osteoarthritis, unspecified site; Z87.891 Personal history of nicotine dependence; E86.0 Dehydration; B96.20 Unspecified Escherichia coli [E. coli] as the cause of diseases classified elsewhere; W19.XXXA Unspecified fall, initial encounter; Y92.009 Unspecified place in unspecified non-institutional (private) residence as the place of occurrence of the external cause; E86.1 Hypovolemia
CPT/HCPCS: 36415; 72170; 73502; 80053; 81003; 82248; 83735; 84443; 85007; 85025; 85610; 85730; 87086; 87181; 94003; 94150; J2370; J7030